=== PATIENT | male | born 1955 | race Hispanic/Latino ===

== ENCOUNTER 2017-02-17 06:03 | Day surgery (SDC) | payer BC ==
[2017-02-16 11:17] VITALS: BMI 31.8
[2017-02-17 06:45] VITALS: RESP 18
[2017-02-17] MEDS ORDERED: Phenylephrine 10 mg/ml Inj ONE (06:53)
[2017-02-17] MEDS ORDERED: Lidocaine 2% Inj (20ml) ONE (06:53)
[2017-02-17] MEDS ORDERED: DiphenhydrAMINE 50 mg/ml Inj ONE (06:54)
[2017-02-17] MEDS ORDERED: Midazolam 2 MG/2 ML VIAL ONE ×2 (06:55→07:49)
[2017-02-17] MEDS ORDERED: Iodixanol 320 MG/ML 100 ML BOTTLE IV ONE (06:56)
[2017-02-17] MEDS ORDERED: Iohexol 350mgl/ml 50 ML ONE (06:56)
[2017-02-17] MEDS ORDERED: Famotidine 20mg/50ml 20 MG/50 ML BAG IVPB ONE (06:56)
[2017-02-17] MEDS ORDERED: Nitroglycerin 50mg in D5W 0 MG/0 ML BOTTLE IV ONE (06:56)
[2017-02-17] MEDS ORDERED: Iodixanol 320 MG/ML 200 ML BOTTLE IV ONE (06:56)
[2017-02-17] MEDS ORDERED: HEPARIN SODIUM/NS 2,000 ML IV ONE (06:57)
[2017-02-17] MEDS ORDERED: Sodium Chloride 0.9% 1,000 ML IV SCH (08:30)
[2017-02-17 08:41] VITALS: TEMP 97.5
[2017-02-17 10:48] VITALS: O2SAT 93
[2017-02-17 12:16] VITALS: BP 149/70; PULSE 74
--- NOTE | 2017-02-17 15:26 | CARDCATH ---
PROCEDURE DATE: 02/17/2017 CARDIAC CATHETERIZATION REPORT PROCEDURES: 1. Selective left coronary angiography. 2. Left ventriculography. 3. Right femoral arteriography. 4. Mynx deployment. HISTORY: This is a 61-year-old male with multiple cardiac risk factors, recent abnormal stress test performed prior to plan the hip replacement surgery. Cardiac catheterization was recommended. INDICATIONS: As above. FINDINGS: HEMODYNAMICS: The aortic pressure was 130/76 with left ventricular pressure of 130/10. CORONARY ANATOMY: 1. The left mainstem was normal. 2. The left anterior descending artery had mild irregularities proximally. In the early mid portion there was moderate tapering of a 50% severity in the early distal segment. There was a 70% stenosis. The vessels was fairly large and wrapped around the apex. The diagonal branches had minimal disease. 3. The left circumflex artery gave rise to 2 moderate size obtuse marginal branches, which had minimal disease. 4. The right coronary artery was large dominant and normal. LEFT VENTRICULOGRAPHY: A hand injection was performed in the MILLER projection. This revealed normal wall motion with an ejection fraction of 65%. There was no aortic valve gradient noted on catheter pullback. Mitral regurgitation was not assessed. RIGHT FEMORAL ARTERIOGRAPHY: A right femoral arteriogram revealing no evidence of significant disease and appropriate level of arterial puncture. The puncture site was then closed with deployment of a Mynx device. CONCLUSIONS: 1. Moderate distal LAD disease. 2. Preserved LV systolic function. RECOMMENDATIONS: Given the above findings, medical therapy appears most appropriate at the present time with risk factor of upcoming orthopedic surgery, he appeared to be at average risk and does not require coronary intervention of prior to proceeding. Intensification of statin therapy and addition of a beta-serafin would be advisable. If he has progressive angina or worsening ischemia and followup stress testing consideration could be given to PCI of the distal LAD. Americo Chen MD cc: Paulina Restrepo MD
== END 2017-02-17 13:00 | disposition home or self-care (01) ==
LOC: CATH 06:03
PROVIDERS: ATTEND Internal Medicine Cardiovascular Disease
DX: I25.10 Atherosclerotic heart disease of native coronary artery without angina pectoris (principal); I10 Essential (primary) hypertension
CPT/HCPCS: 36415; 84132; 86850; 86900; 93458; 99152; 99153; C1760; C1769; C2629; J1200; J1644; J2250; J2930; J3010; J7030; J7040

== ENCOUNTER 2017-03-02 06:16 | Inpatient (IN) | payer BC ==
[2017-03-02 07:06] LABS: BASO # 0.02 [, K/mm3] (0.0-2.0); BASO % 0.3 % (0.0-3.0); EOS # 0.2 (0.0-0.7); EOS % 3.7 % (1.5-5.0); GRAN # 4.96 (1.4-6.5); GRAN % 76.8 % (50.0-68.0); HEMOGLOBIN 13.6 g/dL (14.0-18.0); LYMPH # 0.7 (1.2-3.4); MEAN CELL VOLUME 92.2 fl (80.0-105.0); MEAN CORPUSCULAR HEMOGLOBIN 31.3 pg (25.0-35.0); MEAN PLATELET VOLUME 9.5 fl (7.0-11.0); MONO # 0.5 (0.1-0.6); MONO % 8.2 % (1.0-6.0); RBC 4.34 [, 10^6/uL] (3.5-6.1); RED CELL DISTRIBUTION WIDTH 12.6 % (11.5-14.5); WHITE BLOOD COUNT 6.5 [, 10^3/ul] (4.5-11.0)
[2017-03-02 07:17] LABS: BLOOD UREA NITROGEN 16 mg/dL (7-21); CALCIUM 9.3 mg/dL (8.4-10.5); GFR AFRICAN-AMERICAN > 60; GFR NON-AFRICAN AMERICAN > 60
--- NOTE | 2017-03-02 07:21 | CP.PCM.HP ---
History of Present Illness - History of Present Illness History of Present Illness: 61M with left hip DJD failed conservative mgmt and elected for THR. Prior surgery includes right TKR, hiatal hernia PMD: Dr. Ahumada, Dr. Munoz cardiology clearance Allergy to iodine (eye drops, rash) Present on Admission - Present on Admission Any Indicators Present on Admission: No Review of Systems - Constitutional Additional comments: no recent cough or cold - Musculoskeletal Musculoskeletal: As Per HPI - Hematologic/Lymphatic Hematologic: absent: As Per HPI, Easy Bleeding, Easy Bruising, Lymphadenopathy, Other Past Patient History - Infectious Disease Hx of Infectious Diseases: None - Past Medical History & Family History Past Medical History?: Yes Past Family History: Reviewed and not pertinent - Past Social History Smoking Status: Former Smoker - CARDIAC Hx Pacemaker: No - PULMONARY Hx Respiratory Disorders: Yes Hx Chronic Obstructive Pulmonary Disease (COPD): Yes - NEUROLOGICAL Hx Paralysis: No - RENAL Other/Comment: PROSTATE CA NEW DX 04/2015 - ENDOCRINE/METABOLIC Hx Endocrine Disorders: No - HEMATOLOGICAL/ONCOLOGICAL Hx Blood Transfusions: No - MUSCULOSKELETAL/RHEUMATOLOGICAL Hx Musculoskeletal Disorders: Yes - GASTROINTESTINAL Hx Gastrointestinal Disorders: Yes Hx Gastroesophageal Reflux: Yes - GENITOURINARY/GYNECOLOGICAL Hx Prostate Cancer: Yes Hx Prostate Problems: Yes Hx Reproductive Disorders: No - PSYCHIATRIC Hx Emotional Abuse: No Hx Physical Abuse: No Hx Substance Use: No - SURGICAL HISTORY Hx Surgeries: Yes Hx Herniorrhaphy: Yes (2008 hiatal hernia) Hx Joint Replacement: Yes (right knee) - ANESTHESIA Hx Anesthesia Reactions: No Hx Malignant Hyperthermia: No Meds Allergies/Adverse Reactions: Allergies Allergy/AdvReac Type Severity Reaction Status Date / Time Iodine and Iodide Containing Allergy Severe ANGIOEDEMA/ Verified 02/03/17 07:42 Produc HIVES Physical Exam - Constitutional Appears: Well, No Acute Distress - Respiratory Exam Respiratory Exam: NORMAL BREATHING PATTERN - Expanded Lower Extremities Exam Left Hip exam: shortening (5mm short on left), normal inspection Knee exam: full ROM Ankle exam: FULL ROM - Neurological Exam Neurological exam: Alert, Oriented x3 - Psychiatric Exam Psychiatric exam: Normal Affect, Normal Mood - Skin Skin Exam: Dry, Intact, Normal Color, Warm Results - Vital Signs Recent Vital Signs: Last Vital Signs Temp 97.9 F 03/02/17 07:10 Pulse 70 03/02/17 07:10 Resp 18 03/02/17 07:10 BP 144/69 03/02/17 07:10 Pulse Ox 97 03/02/17 07:10 - Labs Result Diagrams: 03/02/17 06:43 03/02/17 06:43 Labs: Laboratory Results - last 24 hr 03/02/17 03/02/17 03/02/17 06:43 06:43 06:43 WBC 6.5 D RBC 4.34 Hgb 13.6 L Hct 40.0 L MCV 92.2 MCH 31.3 MCHC 34.0 RDW 12.6 Plt Count 188 MPV 9.5 Gran % 76.8 H Lymph % (Auto) 11.0 L Navarro % (Auto) 8.2 H Eos % (Auto) 3.7 Baso % (Auto) 0.3 Gran # 4.96 Lymph # 0.7 L Navarro # 0.5 Eos # 0.2 Baso # 0.02 Sodium 140 Potassium 4.0 Chloride 106 Carbon Dioxide 26 Anion Gap 13 BUN 16 Creatinine 1.0 Est GFR ( Amer) > 60 Est GFR (Non-Af Amer) > 60 Random Glucose 106 Calcium 9.3 BBK History Checked Patient has bt - Impressions Impression: atient Name / ID : TRINH GRUBBS / [id number] Exam Date : 02/03/2017 08:09:02 ( Approved ) Study Comment : Sex / Age : M / 61Y Creator : Charley Goldman Dictator : Charley Goldman Platform Stapler : Animal Behaviourist : Charley Goldman Approver2 : Report Date : 02/03/2017 13:16:02 My Comment : HISTORY: pre op hip rplct COMPARISON: 10/05/2015 TECHNIQUE: Chest PA and lateral FINDINGS: LUNGS: No active pulmonary disease. PLEURA: No significant pleural effusion identified. No pneumothorax apparent. CARDIOVASCULAR: Normal. OSSEOUS STRUCTURES: Thoracic spondylosis. Bilateral shoulder arthrosis VISUALIZED UPPER ABDOMEN: Normal. OTHER FINDINGS: None. IMPRESSION: No active disease. Assessment & Plan (1) Degenerative joint disease of left hip Assessment and Plan: NPO T&S for OR Status: Acute
[2017-03-02] MEDS ORDERED: Heparin 10,000 Units/ml ONE (07:26)
[2017-03-02] MEDS ORDERED: Bupivacaine 0.5% Inj(30mL) ONE (07:27)
[2017-03-02] MEDS ORDERED: EPINEPHrine 1:1000 Nasal Sol(30mL) ONE (07:28)
[2017-03-02] MEDS ORDERED: Midazolam 2 MG/2 ML VIAL ONE (07:34)
[2017-03-02] MEDS ORDERED: Succinylcholine 200 mg/10 ml Inj IV ONE (07:36)
[2017-03-02] MEDS ORDERED: Lidocaine 1% Inj (20ml) ONE (07:36)
[2017-03-02] MEDS ORDERED: Rocuronium 10 mg/ml (5 ml) ONE ×2 (07:36→08:49)
[2017-03-02] MEDS ORDERED: Propofol 10 mg/ml Inj (20 ML) ONE (07:36)
[2017-03-02] MEDS ORDERED: ePHEDrine 50 mg/ml Inj ONE ×2 (07:42→07:43)
[2017-03-02] MEDS ORDERED: Phenylephrine 10 mg/ml Inj ONE (07:42)
[2017-03-02] MEDS ORDERED: Ketamine 10 mg/ml Inj (20 ml) ONE (07:59)
[2017-03-02] MEDS ORDERED: Desflurane Inhalation Anesthetic Liq (240 ml) ONE (09:39)
[2017-03-02] MEDS ORDERED: Neostigmine Methylsulfate 3mg/3ml Syringe IV ONE (11:03)
--- NOTE | 2017-03-02 11:21 | PCM.SURG1 ---
Surgeon's Initial Post Op Note - Surgeon's Notes Surgeon: Tosha Mclain MD Lye Machine Operator: Flaquito Cristobal PA-C Type of Anesthesia: General LMA Anesthesia Administered By: Dr. Rivera Pre-Operative Diagnosis: Left hip DJD Operative Findings: same Post-Operative Diagnosis: same Operation Performed: Left total hip replacement Specimen/Specimens Removed: femoral head Estimated Blood Loss: EBL {In ML}: 150 Drains Used: No Drains Post-Op Condition: Fair Date of Surgery/Procedure: 03/02/17 Time of Surgery/Procedure: 11:21
[2017-03-02] MEDS ORDERED: HYDROmorphone 0.5 mg/0.5 ml ISec IVP PRN (11:25)
[2017-03-02] MEDS ORDERED: Sodium Chloride 0.9% 1,000 ML IV SCH (11:30)
[2017-03-02] MEDS: HYDROmorphone 0.5 mg/0.5 ml ISec ONE ×2 (11:45→12:10)
--- NOTE | 2017-03-02 12:03 | RAD ---
PROCEDURE: Left Hip X-ray Radiographs. HISTORY: pt in PACU s/p THR COMPARISON: None. FINDINGS: BONES: No acute fracture. JOINTS: Status post left total hip replacement. No dislocation. SOFT TISSUES: Normal. OTHER FINDINGS: None. IMPRESSION: Left THR.
[2017-03-02] MEDS ORDERED: HYDROmorphone 0.5 mg/0.5 ml ISec ONE (12:08)
[2017-03-02] MEDS ORDERED: ceFAZolin 2 GM in Sodium Chloride 0.9% 100 ML IVPB SCH (16:00)
[2017-03-02] MEDS: Multivitamin With Minerals Tab PO SCH (17:00)
[2017-03-02] MEDS: Pantoprazole 40 mg EC Tab PO SCH (17:01)
[2017-03-02] MEDS: Sodium Chloride 0.9% 1,000 ML IV SCH (17:09)
[2017-03-02 19:43] VITALS: BMI 32.2
[2017-03-02] MEDS: HYDROmorphone 0.5 mg/0.5 ml ISec IVP PRN ×2 (19:48→23:55)
[2017-03-02] MEDS: ceFAZolin 2 GM in Sodium Chloride 0.9% 100 ML IVPB SCH (19:48)
[2017-03-02] MEDS: Budesonide 0.5 mg/2 ml Inhal Susp UD IH SCH (21:48)
[2017-03-02] MEDS: Arformoterol 15 mcg/2 ml Inh Sol IH SCH (21:48)
--- NOTE | 2017-03-02 22:22 | OP ---
PROCEDURE DATE: 03/02/2017 PREOPERATIVE DIAGNOSIS: Left hip arthritis. POSTOPERATIVE DIAGNOSIS: Left hip arthritis. PROCEDURE: Left total hip arthroplasty. SURGEON: El Howell MD VEGETABLE INSPECTOR: Dr. Howell was assisted by Paula Vanegas, the physician registered dental assistant. Ms. Vanegas was scrubbed and present throughout the entire case and assisted in the patient's positioning, retraction, reduction of the prosthesis, as well as wound closure. ANESTHESIA: General. COMPLICATIONS: None. ESTIMATED BLOOD LOSS: 150 mL. IMPLANTS: Biomet dual mobility, total hip. INDICATION FOR PROCEDURE: This is a 61-year-old gentleman with longstanding left hip pain. Clinical examination was consistent with groin pain with range of motion of the left hip, approximately 1.5 to 2 cm limb length discrepancy with the left lower extremity shorter than the right. Radiographic examination consistent with advanced degenerative joint disease. After feared of failed nonsurgical management, recommendation was for left total hip arthroplasty. The risks, benefits, and alternatives of the procedure were discussed with the patient including instability and persistent limb length discrepancy, and informed consent was obtained. OPERATIVE PROCEDURE: After the surgical site was signed and verified in the preoperative holding area, the patient was taken to the operating room and placed supine on the operating room table. After administration of general anesthesia, the patient received 2 gm of Ancef IV. The patient was positioned in the lateral decubitus position with the left hip up towards the ceiling. An axillary roll was placed in the right axilla. Care was taken to make sure all bony prominences and nerves were well padded and protected. Venodyne boot was placed on the nonoperative extremity and the left lower extremity was prepped and draped in the usual sterile fashion. The bony landmarks were identified about the left hip, and approximately 10 to 12 cm curvilinear incision was made. Soft tissue was dissected sharply down to the fascia, and the fascia was incised. Charnley retractor was placed and short external rotators were identified, tagged and resected off from the proximal femur. T-type capsulotomy was performed and the hip was dislocated. Based on our preoperative template, femoral neck resection was performed. Next, the anterior capsulotomy was performed and the acetabulum was exposed. The labrum was sharply excised around the periphery of the acetabulum and at this point, the acetabulum was reamed sequentially to allow for a 56 mm press-fit cup. The cup was trailed and satisfied with the position, the trial was removed, and the hip joint was pulse lavaged with antibiotic saline solution. Bony surfaces were dried and the actual cup was impacted into place making sure to maintain a proper acetabular height and version. At this point, attention was directed to the femur. The canal finding reamer was inserted and then the femur canal was reamed and broached sequentially to allow for an 11 mm press-fit stem. With the trial stem in place, the trial neck and head was placed, the hip was reduced. The hip was taken through a range of motion and was noted to be stable with approximately equal limb lengths. The hip was then dislocated and the trial components were removed. The hip was pulse lavaged and the actual stem was then impacted into place. Prior to doing this, the acetabular liner was inserted and impacted into place. At this point, the hip was reduced and again was noted to be stable with approximately equal limb lengths. Capsule was closed using #1 Vicryl suture. The short external rotators were also repaired using #1 Vicryl suture. The deep fascia was closed using #1 Vicryl suture, the subcutaneous tissue was closed using 0 Vicryl and 2-0 Vicryl suture and the skin was closed using rony. A sterile dressing was applied and an abduction pillow was placed. The patient was transferred supine and awakened and taken to recovery room in stable condition. El Howell MD
[2017-03-03] MEDS: ceFAZolin 2 GM in Sodium Chloride 0.9% 100 ML IVPB SCH (02:30)
[2017-03-03] MEDS: HYDROmorphone 0.5 mg/0.5 ml ISec IVP PRN ×5 (04:56→22:44)
[2017-03-03] MEDS: Budesonide 0.5 mg/2 ml Inhal Susp UD IH SCH ×2 (07:23→21:31)
[2017-03-03] MEDS: Arformoterol 15 mcg/2 ml Inh Sol IH SCH ×2 (07:23→21:31)
[2017-03-03 07:31] LABS: BLOOD UREA NITROGEN 16 mg/dL (7-21); CALCIUM 8.5 mg/dL (8.4-10.5); GFR AFRICAN-AMERICAN > 60; GFR NON-AFRICAN AMERICAN > 60
[2017-03-03 09:04] VITALS: RESP 20
[2017-03-03] MEDS: Cholecalciferol 1,000 INTLU TAB PO SCH (09:23)
[2017-03-03] MEDS: Potassium Chloride 10 mEq ER Tab PO SCH ×2 (09:23→18:18)
[2017-03-03] MEDS: Pantoprazole 40 mg EC Tab PO SCH (09:24)
[2017-03-03] MEDS: Multivitamin With Minerals Tab PO SCH (09:24)
[2017-03-03] MEDS: Metoprolol Succinate 25 mg XL Tab PO SCH (09:24)
[2017-03-03] MEDS: Sodium Chloride 0.9% 1,000 ML IV SCH (09:27)
[2017-03-03] MEDS ORDERED: Enoxaparin 40 mg Syringe SC SCH (10:00)
[2017-03-03] MEDS ORDERED: Fluticasone-Salmeterol 250-50mcg Diskus IH SCH (10:00)
[2017-03-03] MEDS ORDERED: Non Formulary Medication (Rosuvastatin Calcium [Crestor] 10 MG) PO SCH (10:00)
--- NOTE | 2017-03-03 11:12 | CP.PCM.PN ---
Subjective - Date & Time of Evaluation Date of Evaluation: 03/03/17 Time of Evaluation: 11:09 - Subjective Subjective: Pt awake,alert. Adequate pain control. Pain sitting in chair. Afebrile L hip: dressing clean and intact NVI distally Hg pending POD#1 Stable PT, DVT prophylaxis D/C plan discussed with patient. Plan for d/c home with home PT possibly tomorrow. Objective - Vital Signs/Intake and Output Vital Signs (last 24 hours): Temp Pulse Resp BP Pulse Ox 98.2 F 84 20 116/62 94 L 03/03/17 09:03 03/03/17 09:24 03/03/17 09:03 03/03/17 09:25 03/03/17 09:03 Intake and Output: 03/03/17 03/03/17 06:59 18:59 Intake Total 480 Balance 480 - Medications Medications: Current Medications Acetaminophen (Tylenol 325mg Tab) 975 mg PO Q8H [facility] Last Admin: 03/03/17 04:57 Dose: 975 mg Amlodipine Besylate (Norvasc) 10 mg PO DAILY [facility] Last Admin: 03/03/17 09:25 Dose: 10 mg Apixaban (Eliquis) 2.5 mg PO Q12H [facility] PRN Reason: Protocol Last Admin: 03/03/17 09:24 Dose: 2.5 mg Arformoterol Tartrate (Brovana) 15 mcg IH [id number] [facility] Last Admin: 03/03/17 07:23 Dose: 15 mcg Aspirin (Ecotrin) 81 mg PO DAILY [facility] Last Admin: 03/03/17 09:25 Dose: 81 mg Atorvastatin Calcium (Lipitor) 40 mg PO DIN [facility] Last Admin: 03/02/17 17:00 Dose: 40 mg Budesonide (Pulmicort Respules) 0.5 mg IH [id number] [facility] Last Admin: 03/03/17 07:23 Dose: 0.5 mg Cholecalciferol (Vitamin D) 2,000 intlu PO DAILY [facility] Last Admin: 03/03/17 09:23 Dose: 2,000 intlu Docusate Sodium (Colace) 100 mg PO BID [facility] Last Admin: 03/03/17 09:22 Dose: 100 mg Gabapentin (Neurontin) 300 mg PO TID [facility] PRN Reason: Protocol Last Admin: 01/17/18 09:22 Dose: 300 mg Hydromorphone HCl (Dilaudid) 0.5 mg IVP Q4H PRN PRN Reason: Pain, severe (8-10) Last Admin: 03/03/17 09:25 Dose: 0.5 mg Sodium Chloride (Sodium Chloride 0.9%) 1,000 mls @ 80 mls/hr IV .[id number] [facility] Last Admin: 03/03/17 09:27 Dose: 80 mls/hr Metoclopramide HCl (Reglan) 10 mg IV ONCE PRN PRN Reason: Nausea/Vomiting Metoprolol Succinate (Toprol Xl) 25 mg PO DAILY [facility] Last Admin: 03/03/17 09:24 Dose: 25 mg Multivitamins/Minerals (Therapeutic-M Tab) 1 tab PO DAILY [facility] Last Admin: 03/03/17 09:24 Dose: 1 tab Ondansetron HCl (Zofran Inj) 4 mg IVP Q6H PRN PRN Reason: Nausea/Vomiting Last Admin: 03/03/17 04:57 Dose: 4 mg Pantoprazole Sodium (Protonix Ec Tab) 40 mg PO DAILY [facility] Last Admin: 03/03/17 09:24 Dose: 40 mg Potassium Chloride (Klor-Con 10) 10 meq PO BID [facility] Last Admin: 03/03/17 09:23 Dose: 10 meq Tamsulosin HCl (Flomax) 0.4 mg PO DAILY [facility] Last Admin: 03/03/17 09:23 Dose: 0.4 mg - Labs Labs: 03/02/17 06:43 03/03/17 06:30
[2017-03-03 11:25] LABS: BASO # 0.01 [, K/mm3] (0.0-2.0); BASO % 0.1 % (0.0-3.0); EOS # 0.1 (0.0-0.7); EOS % 0.8 % (1.5-5.0); GRAN # 7.19 (1.4-6.5); GRAN % 82.1 % (50.0-68.0); LYMPH # 0.8 (1.2-3.4); LYMPH % 9.3 % (22.0-35.0); MEAN CELL VOLUME 95.2 fl (80.0-105.0); MEAN CORPUSCULAR HEMOGLOBIN 31.4 pg (25.0-35.0); MEAN CORPUSCULAR HGB CONC 32.9 g/dl (31.0-37.0); MEAN PLATELET VOLUME 9.7 fl (7.0-11.0); MONO # 0.7 (0.1-0.6); MONO % 7.7 % (1.0-6.0); RBC 3.57 [, 10^6/uL] (3.5-6.1); RED CELL DISTRIBUTION WIDTH 12.8 % (11.5-14.5); WHITE BLOOD COUNT 8.8 [, 10^3/ul] (4.5-11.0)
[2017-03-03 11:36] LABS: HEMOGLOBIN 11.2 g/dL (14.0-18.0)
[2017-03-04] MEDS: HYDROmorphone 0.5 mg/0.5 ml ISec IVP PRN ×6 (02:32→21:55)
--- NOTE | 2017-03-04 03:56 | CON ---
DATE: 03/03/2017 REFERRING PHYSICIAN: El Howell MD. PRIMARY CARE DOCTOR: Paulina Restrepo MD REASON FOR CONSULTATION: Medical management of left hip surgery, postop care with pain management. CHIEF COMPLAINT AND HISTORY OF PRESENT ILLNESS: This is a 61-year-old male who is coming into the hospital for elective left hip surgery. The patient has a history of degenerative joint disease in the left hip. He had medical management, but he is having difficulty in ambulating. He had surgery by Dr. Delgado. I have been asked to evaluate the patient for his postop care from the hip surgery as well as pain management. The patient states he had a difficult night overnight because of the pain. He had difficulty sleeping. He states that he is feeling better with the pain medication he is getting. He does needs to be changed, but it is early and so we will see how he feels rest of the morning. The patient is comfortable. He has no complaints of any nausea. No chest pain. No shortness of breath. No headaches. No weakness in the arms or the legs. No dizziness. No blurred vision. REVIEW OF SYSTEMS: All other review of symptoms are within jayy limits except as mentioned. ALLERGIES: HE IS ALLERGIC TO IODINE. HOME MEDICATIONS: He is on aspirin, tamsulosin, Nexium, amlodipine, metoprolol, and vitamin D. SOCIAL HISTORY: He denies alcohol or drugs. FAMILY HISTORY: Noncontributory. PHYSICAL EXAMINATION: VITAL SIGNS: Temperature is 98.2, pulse is 84, blood pressure is 116/62, respirations are 20, and O2 saturation is 94%. Height is 5 feet 7 inches. Weight is 206 pounds. BMI is 32. GENERAL: The patient lying in bed, uncomfortable, and in no acute distress. HEENT: Atraumatic and normocephalic. Anicteric sclerae. Moist mucosa. Worth conjunctivae. No oral lesions. NECK: No JVD, anterior and posterior adenopathy, thyromegaly, or bruits. CARDIOVASCULAR: S1 and S2 regular. No murmur, rubs, or gallop. LUNGS: Clear to auscultation bilaterally. No wheezes, rales, or rhonchi. ABDOMEN: Bowel sounds are positive. Soft, nontender and nondistended. No hepatosplenomegaly. No rebound and no guarding. EXTREMITIES: No cyanosis, clubbing, or edema. In the left leg, decreased range of motion because of pain. NEUROLOGIC: No facial asymmetry. Tongue is midline. No uvula deviation. Power is 5/5 upper extremity and lower extremity. Sensation intact in upper extremity and lower extremity. PSYCHIATRIC: He is awake, alert and oriented x3. No anxiety or depression. He has normal affect. GENITOURINARY: No CVA tenderness. VASCULAR: 2+ pulses in the carotid pulses and pedal pulses. SKIN: No erythema or nodules. SPINE: Shows normal curvature. LABORATORY DATA: White count is 6.5 and hemoglobin is 13.6. Repeat hemoglobin is 11.2. He has a vitamin D of 23. Sodium is 140, potassium is 4.0, and creatinine is 1.0. ASSESSMENT: 1. Left hip degenerative joint disease, status post total hip arthroplasty. 2. Dyslipidemia. 3. Peripheral neuropathy. 4. Hypertension. 5. Benign prostatic hyperplasia. PLAN: The patient is currently comfortable. He had about 150 mL of blood loss during the procedure. The patient's blood pressure is controlled. He is going to continue with Norvasc. He is on Lipitor for dyslipidemia. He is going to continue with his potassium. He is receiving for vitamin D for vitamin D deficiency. The patient is on IV fluids. I will discontinue his IV fluids at this point. He is on Flomax for his BPH. The patient is on Dilaudid for pain and he is going to be on Colace for constipation. He is going to be seen by Physical Therapy. He is on a heart-healthy diet. He does have a Neil, this will be taken out. He currently feels well. He may be able to go home by tomorrow. James Emerson MD
[2017-03-04 07:13] LABS: HEMOGLOBIN 10.3 g/dL (14.0-18.0); MEAN CELL VOLUME 93.3 fl (80.0-105.0); MEAN CORPUSCULAR HEMOGLOBIN 31.3 pg (25.0-35.0); MEAN CORPUSCULAR HGB CONC 33.6 g/dl (31.0-37.0); MEAN PLATELET VOLUME 9.2 fl (7.0-11.0); RBC 3.29 [, 10^6/uL] (3.5-6.1); RED CELL DISTRIBUTION WIDTH 12.3 % (11.5-14.5); WHITE BLOOD COUNT 7.5 [, 10^3/ul] (4.5-11.0)
[2017-03-04] MEDS: Arformoterol 15 mcg/2 ml Inh Sol IH SCH ×2 (07:22→20:21)
[2017-03-04] MEDS: Budesonide 0.5 mg/2 ml Inhal Susp UD IH SCH ×2 (07:22→20:21)
[2017-03-04 08:23] LABS: BLOOD UREA NITROGEN 11 mg/dL (7-21); CALCIUM 8.4 mg/dL (8.4-10.5); GFR AFRICAN-AMERICAN > 60; GFR NON-AFRICAN AMERICAN > 60
--- NOTE | 2017-03-04 08:45 | PN ---
DATE: 03/04/2017 SUBJECTIVE: The patient says his pain is now well controlled. He says it lasts about 1 hours and then he starts having significant pain that is about 6-7/10. He still is not able to sleep well. PHYSICAL EXAMINATION: VITAL SIGNS: Temperature is 97.9, pulse of 101, blood pressure is 133/81, respirations 20. GENERAL: The patient is lying in bed, flat, comfortable. HEENT: No oral lesion. Anicteric sclerae. Moist mucosa. NECK: No JVD, adenopathy, or thyromegaly. CARDIOVASCULAR: S1 and S2, regular. No murmurs, rubs, or gallops. LUNGS: Clear to auscultation bilaterally. No wheeze, rales, or rhonchi. ABDOMEN: Bowel sounds are positive, soft, nontender and nondistended. EXTREMITIES: No cyanosis, clubbing or edema. LABS: White count of 7.5, hemoglobin 10.3. ASSESSMENT: 1. Left hip status post left total hip arthroplasty, postoperative day #2. 2. Dyslipidemia. 3. Peripheral neuropathy. 4. Hypertension. 5. Benign prostatic hypertrophy. PLAN: The patient is currently on Colace for constipation. He is going to be on Dilaudid for pain. I have increased the patient's Dilaudid to 1 mg. The patient is on aspirin 81 daily. He is on apixaban for DVT prophylaxis. He is on Flomax for his BPH. He is on potassium. I will discontinue the patient's potassium. He is on Neurontin for neuropathy. He is on Norvasc for hypertension. The patient is on metoprolol daily. He is on vitamin D for low vitamin D. James Emerson MD
--- NOTE | 2017-03-04 09:09 | CP.PCM.PN ---
Subjective - Date & Time of Evaluation Date of Evaluation: 03/04/17 Time of Evaluation: 09:09 - Subjective Subjective: Pt awake, alert. Complaining of L hip pain. VSS L hip: dressing changed incision clean and dry no cellulits or drainage thigh soft NVI distally Hg 10.3 POD #2 continue PT Plan for possibel acute rehab depending on progress with physical therapy today Objective - Vital Signs/Intake and Output Vital Signs (last 24 hours): Temp Pulse Resp BP Pulse Ox 97.9 F 101 H 20 133/81 99 03/04/17 08:03 03/04/17 08:03 03/04/17 08:03 03/04/17 08:03 03/04/17 08:03 Intake and Output: 03/04/17 03/04/17 06:59 18:59 Intake Total 240 Output Total 400 Balance -160 - Medications Medications: Current Medications Acetaminophen (Tylenol 325mg Tab) 975 mg PO Q8H [facility] Last Admin: 03/04/17 08:26 Dose: Not Given Amlodipine Besylate (Norvasc) 10 mg PO DAILY [facility] Last Admin: 03/03/17 09:25 Dose: 10 mg Apixaban (Eliquis) 2.5 mg PO Q12H [facility] PRN Reason: Protocol Last Admin: 03/03/17 21:23 Dose: 2.5 mg Arformoterol Tartrate (Brovana) 15 mcg IH [id number] [facility] Last Admin: 03/04/17 07:22 Dose: 15 mcg Aspirin (Ecotrin) 81 mg PO DAILY [facility] Last Admin: 03/03/17 09:25 Dose: 81 mg Atorvastatin Calcium (Lipitor) 40 mg PO DIN [facility] Last Admin: 03/03/17 18:19 Dose: 40 mg Budesonide (Pulmicort Respules) 0.5 mg IH [id number] [facility] Last Admin: 03/04/17 07:22 Dose: 0.5 mg Cholecalciferol (Vitamin D) 2,000 intlu PO DAILY [facility] Last Admin: 03/03/17 09:23 Dose: 2,000 intlu Docusate Sodium (Colace) 100 mg PO BID [facility] Last Admin: 03/03/17 18:18 Dose: 100 mg Gabapentin (Neurontin) 300 mg PO TID [facility] PRN Reason: Protocol Last Admin: 03/03/17 18:19 Dose: 300 mg Hydromorphone HCl (Dilaudid) 1 mg IVP Q4H PRN PRN Reason: Pain, severe (8-10) Metoclopramide HCl (Reglan) 10 mg IV ONCE PRN PRN Reason: Nausea/Vomiting Metoprolol Succinate (Toprol Xl) 25 mg PO DAILY [facility] Last Admin: 03/03/17 09:24 Dose: 25 mg Multivitamins/Minerals (Therapeutic-M Tab) 1 tab PO DAILY [facility] Last Admin: 03/03/17 09:24 Dose: 1 tab Ondansetron HCl (Zofran Inj) 4 mg IVP Q6H PRN PRN Reason: Nausea/Vomiting Last Admin: 03/03/17 04:57 Dose: 4 mg Pantoprazole Sodium (Protonix Ec Tab) 40 mg PO DAILY [facility] Last Admin: 03/03/17 09:24 Dose: 40 mg Polyethylene Glycol (Miralax) 17 gm PO BID [facility] Tamsulosin HCl (Flomax) 0.4 mg PO DAILY [facility] Last Admin: 03/03/17 09:23 Dose: 0.4 mg - Labs Labs: 03/04/17 06:30 03/04/17 06:15
[2017-03-04] MEDS: POLYETHYLENE GLYCOL 3350 17 GM/Dose PACKET PO SCH ×2 (10:04→17:28)
[2017-03-04] MEDS: Metoprolol Succinate 25 mg XL Tab PO SCH (10:05)
[2017-03-04] MEDS: Multivitamin With Minerals Tab PO SCH (10:05)
[2017-03-04] MEDS: Pantoprazole 40 mg EC Tab PO SCH (10:05)
[2017-03-04] MEDS: Cholecalciferol 1,000 INTLU TAB PO SCH (10:05)
[2017-03-04 10:31] LABS: BASO # 0.01 [, K/mm3] (0.0-2.0); BASO % 0.1 % (0.0-3.0); EOS # 0.2 (0.0-0.7); EOS % 1.8 % (1.5-5.0); GRAN # 6.74 (1.4-6.5); GRAN % 80.4 % (50.0-68.0); HEMOGLOBIN 10.9 g/dL (14.0-18.0); LYMPH # 0.7 (1.2-3.4); LYMPH % 8.4 % (22.0-35.0); MEAN CORPUSCULAR HEMOGLOBIN 31.7 pg (25.0-35.0); MEAN CORPUSCULAR HGB CONC 34.1 g/dl (31.0-37.0); MONO # 0.8 (0.1-0.6); MONO % 9.3 % (1.0-6.0); RBC 3.44 [, 10^6/uL] (3.5-6.1); RED CELL DISTRIBUTION WIDTH 12.2 % (11.5-14.5); WHITE BLOOD COUNT 8.4 [, 10^3/ul] (4.5-11.0)
[2017-03-05] MEDS: HYDROmorphone 0.5 mg/0.5 ml ISec IVP PRN ×6 (02:03→22:18)
[2017-03-05 07:04] LABS: HEMOGLOBIN 10.4 g/dL (14.0-18.0); MEAN CELL VOLUME 92.8 fl (80.0-105.0); MEAN CORPUSCULAR HEMOGLOBIN 31.1 pg (25.0-35.0); MEAN CORPUSCULAR HGB CONC 33.5 g/dl (31.0-37.0); MEAN PLATELET VOLUME 9.2 fl (7.0-11.0); RBC 3.34 [, 10^6/uL] (3.5-6.1); RED CELL DISTRIBUTION WIDTH 12.3 % (11.5-14.5); WHITE BLOOD COUNT 7.2 [, 10^3/ul] (4.5-11.0)
[2017-03-05 07:36] LABS: BLOOD UREA NITROGEN 14 mg/dL (7-21); CALCIUM 8.6 mg/dL (8.4-10.5); GFR AFRICAN-AMERICAN > 60; GFR NON-AFRICAN AMERICAN > 60
[2017-03-05] MEDS: Arformoterol 15 mcg/2 ml Inh Sol IH SCH ×2 (07:37→20:40)
[2017-03-05] MEDS: Budesonide 0.5 mg/2 ml Inhal Susp UD IH SCH ×2 (07:37→20:40)
[2017-03-05] MEDS: Multivitamin With Minerals Tab PO SCH (09:49)
[2017-03-05] MEDS: Metoprolol Succinate 25 mg XL Tab PO SCH (09:50)
[2017-03-05] MEDS: POLYETHYLENE GLYCOL 3350 17 GM/Dose PACKET PO SCH ×2 (09:50→17:40)
[2017-03-05] MEDS: Pantoprazole 40 mg EC Tab PO SCH (09:50)
[2017-03-05] MEDS: Cholecalciferol 1,000 INTLU TAB PO SCH (09:50)
--- NOTE | 2017-03-05 10:41 | CP.PCM.DIS ---
Provider - Provider Date of Admission: 03/02/17 06:16 Attending physician: El Howell MD Primary care physician: Paulina Ahumada MD Diagnosis - Discharge Diagnosis (1) Degenerative joint disease of left hip Status: Acute Hospital Course - Lab Results Lab Results: Most Recent Lab Values WBC 7.2 10^3/ul (4.5-11.0) 03/05/17 06:30 RBC 3.34 10^6/uL (3.5-6.1) L 03/05/17 06:30 Hgb 10.4 g/dL (14.0-18.0) L 03/05/17 06:30 Hct 31.0 % (42.0-52.0) L 03/05/17 06:30 MCV 92.8 fl (80.0-105.0) 03/05/17 06:30 MCH 31.1 pg (25.0-35.0) 03/05/17 06:30 MCHC 33.5 g/dl (31.0-37.0) 03/05/17 06:30 RDW 12.3 % (11.5-14.5) 03/05/17 06:30 Plt Count 150 10^3/uL (120.0-450.0) 03/05/17 06:30 MPV 9.2 fl (7.0-11.0) 03/05/17 06:30 Gran % 80.4 % (50.0-68.0) H 03/04/17 10:25 Lymph % (Auto) 8.4 % (22.0-35.0) L 03/04/17 10:25 [place] % (Auto) 9.3 % (1.0-6.0) H 03/04/17 10:25 Eos % (Auto) 1.8 % (1.5-5.0) 03/04/17 10:25 Baso % (Auto) 0.1 % (0.0-3.0) 03/04/17 10:25 Gran # 6.74 (1.4-6.5) H 03/04/17 10:25 Lymph # 0.7 (1.2-3.4) L 03/04/17 10:25 [place] # 0.8 (0.1-0.6) H 03/04/17 10:25 Eos # 0.2 (0.0-0.7) 03/04/17 10:25 Baso # 0.01 K/mm3 (0.0-2.0) 03/04/17 10:25 Sodium 133 mmol/L (132-148) 03/05/17 06:30 Potassium 3.8 mmol/L (3.6-5.0) 03/05/17 06:30 Chloride 97 mmol/L (98-107) L 03/05/17 06:30 Carbon Dioxide 28 mmol/L (21-33) 03/05/17 06:30 Anion Gap 11 (10-20) 03/05/17 06:30 BUN 14 mg/dL (7-21) 03/05/17 06:30 Creatinine 0.8 mg/dl (0.8-1.5) 03/05/17 06:30 Est GFR ( Amer) > 60 03/05/17 06:30 Est GFR (Non-Af Amer) > 60 03/05/17 06:30 Random Glucose 110 mg/dL (70-110) 03/05/17 06:30 Calcium 8.6 mg/dL (8.4-10.5) 03/05/17 06:30 25-OH Vitamin D Total 23.2 NG/ML (30.0-100.0) L 03/03/17 06:30 Blood Type A POSITIVE 03/02/17 06:43 Antibody Screen Negative 03/02/17 06:43 BBK History Checked Patient has bt 03/02/17 06:43 Discharge Plan - Follow Up Plan Condition: GOOD Disposition: REHAB FACILITY/REHAB UNIT Referrals: Paulina Ahumada MD [Primary Care Provider] - El Howell MD [Staff Provider] - 03/15/17 (Dressing change left hip daily until dry hip abduction pillow in bed posterior hip precautions continue medications per APR f/u 03/15/17 call for appointment)
--- NOTE | 2017-03-05 10:44 | CP.PCM.PN ---
Subjective - Date & Time of Evaluation Date of Evaluation: 03/05/17 Time of Evaluation: 10:43 - Subjective Subjective: Patient still complaining of significant hip pain. He says he wants to go to rehab because he is not able to do anything independently. Denies CP/SOB/ dizziness. Objective - Vital Signs/Intake and Output Vital Signs (last 24 hours): Temp Pulse Resp BP Pulse Ox 99.6 F 90 20 128/83 93 L 03/05/17 07:47 03/05/17 09:50 03/05/17 07:47 03/05/17 09:49 03/05/17 07:47 Intake and Output: 03/05/17 03/05/17 06:59 18:59 Intake Total 900 Output Total 1050 Balance -150 - Medications Medications: Current Medications Acetaminophen (Tylenol 325mg Tab) 975 mg PO Q8H [facility] Last Admin: 03/05/17 08:00 Dose: Not Given Amlodipine Besylate (Norvasc) 10 mg PO DAILY [facility] Last Admin: 03/05/17 09:49 Dose: 10 mg Apixaban (Eliquis) 2.5 mg PO Q12H [facility] PRN Reason: Protocol Last Admin: 03/05/17 08:26 Dose: 2.5 mg Arformoterol Tartrate (Brovana) 15 mcg IH [id number] [facility] Last Admin: 03/05/17 07:37 Dose: 15 mcg Aspirin (Ecotrin) 81 mg PO DAILY [facility] Last Admin: 03/05/17 09:49 Dose: 81 mg Atorvastatin Calcium (Lipitor) 40 mg PO DIN [facility] Last Admin: 03/04/17 17:28 Dose: 40 mg Budesonide (Pulmicort Respules) 0.5 mg IH [id number] [facility] Last Admin: 03/05/17 07:37 Dose: 0.5 mg Cholecalciferol (Vitamin D) 2,000 intlu PO DAILY [facility] Last Admin: 03/05/17 09:50 Dose: 2,000 intlu Docusate Sodium (Colace) 100 mg PO BID [facility] Last Admin: 03/05/17 09:49 Dose: 100 mg Gabapentin (Neurontin) 300 mg PO TID [facility] PRN Reason: Protocol Last Admin: 03/05/17 09:49 Dose: 300 mg Hydromorphone HCl (Dilaudid) 1 mg IVP Q4H PRN PRN Reason: Pain, severe (8-10) Last Admin: 03/05/17 09:54 Dose: 1 mg Metoprolol Succinate (Toprol Xl) 25 mg PO DAILY [facility] Last Admin: 03/05/17 09:50 Dose: 25 mg Multivitamins/Minerals (Therapeutic-M Tab) 1 tab PO DAILY [facility] Last Admin: 03/05/17 09:49 Dose: 1 tab Ondansetron HCl (Zofran Inj) 4 mg IVP Q6H PRN PRN Reason: Nausea/Vomiting Last Admin: 03/03/17 04:57 Dose: 4 mg Pantoprazole Sodium (Protonix Ec Tab) 40 mg PO DAILY [facility] Last Admin: 03/05/17 09:50 Dose: 40 mg Polyethylene Glycol (Miralax) 17 gm PO BID [facility] Last Admin: 03/05/17 09:50 Dose: 17 gm Tamsulosin HCl (Flomax) 0.4 mg PO DAILY [facility] Last Admin: 03/05/17 09:49 Dose: 0.4 mg - Labs Labs: 03/05/17 06:30 03/05/17 06:30 - Extremities Exam Additional comments: Left hip: dressing change. Incision intact, scant sang drainage, noted ecchymosis to thigh, stable swelling., +ROM ankle/toes, sensation itact +DP/PT pulses calves soft NT neg homans Assessment and Plan (1) Degenerative joint disease of left hip Assessment & Plan: POD#3 s/p left THR -d/c to [facility] today -cont medications including eliquis -hip precautions, abduction pillow in bed -daily dressing change -f/u call for appt -d/w Dr. Howell, agrees with above Status: Acute (2) Acute blood loss anemia Assessment & Plan: hemodynamically stable, no intervention needed Status: Acute (3) HTN (hypertension) Assessment & Plan: cont home meds Status: Chronic (4) GERD (gastroesophageal reflux disease) Assessment & Plan: cont home meds Status: Chronic (5) Hypercholesteremia Assessment & Plan: cont home meds Status: Chronic (6) Asthma Assessment & Plan: cont home meds Status: Chronic
--- NOTE | 2017-03-05 17:56 | US ---
PROCEDURE: Left lower extremity venous US HISTORY: Leg pain and swelling. Evaluate for DVT. Recent left hip surgery. PHYSICIAN(S): Jeyson Daniel MD. TECHNIQUE: Duplex sonography and color-flow Doppler with graded compression were used to evaluate the deep venous system of the left lower extremity. FINDINGS: The visualized deep venous system of the left lower extremity is sonographically normal and compressible. Normal wave forms and augmentation are seen. There is no sonographic evidence for deep venous thrombosis in the visualized segments of the left lower extremity. IMPRESSION: 1. No sonographic evidence for deep venous thrombosis in the visualized segments of the left lower extremity.
[2017-03-05 21:11] VITALS: BP 119/64; PULSE 87; TEMP 99.4; O2SAT 92
== END 2017-03-06 00:05 | DRG 470 ==
LOC: SDAINP 06:16 → EDSTATUS 07:30 → 5RNO 13:10
PROVIDERS: ADMIT Orthopaedic Surgery; ATTEND Orthopaedic Surgery
PROC: 0SRB0JA Replacement of Left Hip Joint with Synthetic Substitute, Uncemented, Open Approach (ICD-10-PCS; principal; 2017-03-02 07:30)
DX: M16.12 Unilateral primary osteoarthritis, left hip (principal); C61 Malignant neoplasm of prostate; G62.9 Polyneuropathy, unspecified; D62 Acute posthemorrhagic anemia; E78.5 Hyperlipidemia, unspecified; I10 Essential (primary) hypertension; J44.9 Chronic obstructive pulmonary disease, unspecified; K21.9 Gastro-esophageal reflux disease without esophagitis; N40.0 Benign prostatic hyperplasia without lower urinary tract symptoms; Z79.82 Long term (current) use of aspirin; Z87.891 Personal history of nicotine dependence; Z96.651 Presence of right artificial knee joint; Z91.041 Radiographic dye allergy status; Z88.8 Allergy status to other drugs, medicaments and biological substances; K59.00 Constipation, unspecified; E78.00 Pure hypercholesterolemia, unspecified

== ENCOUNTER 2017-06-26 08:41 | Inpatient (IN) | payer BC ==
[2017-06-26] MEDS ORDERED: Albuterol-Ipratrop 3 mg / 0.5 (3 ml) UD IH STA (08:55)
--- NOTE | 2017-06-26 08:58 | ED PDOC ---
Arrival/HPI - General Chief Complaint: Chest Pain Time Seen by Provider: 06/26/17 08:46 Historian: Patient - History of Present Illness Narrative History of Present Illness (Text): 06/26/17 08:50 61 year old male, whose PMH includes hypertension, COPD, left hip replacement, and cardiac catheterization (in February), who presents to the emergency department complaining of intermittent episodes of chest pain, and shortness of breath since one day ago. Patient reports walking yesterday and developed shortness of breath and chest pain, which resolved with rest. Last night the same symptoms developed and chest pain resolved, but he continues to have shortness of breath. Patient notes quitting smoking 20 years ago and is an occasional drinker. Patient denies cough, congestion, URI, fever, or chills. No other complaints were made. Time/Duration: 24 hours Symptom Onset: Sudden Symptom Course: Unchanged, Intermittent Activities at Onset: Light Context: Walking Associated Symptoms (Text): 06/26/17 10:18 Episode of chest pain and shortness of breath yesterday while walking which was relieved by rest. Chest pain and dyspnea again overnight while sleeping. The pain is resolved but he remains dyspneic. Cardiac catheterization in February of this year showing a 70% LAD lesion. Past Medical History - Provider Review Nursing Documentation Reviewed: Yes - Infectious Disease Hx of Infectious Diseases: None - Cardiac Hx Hypertension: Yes - Pulmonary Hx Chronic Obstructive Pulmonary Disease (COPD): Yes - Neurological Hx Paralysis: No - Renal Other/Comment: PROSTATE CA NEW DX 04/2015 - Endocrine/Metabolic Hx Endocrine Disorders: No - Hematological/Oncological Hx Cancer: Yes (Prostate with radiation treatment) - Musculoskeletal/Rheumatological Hx Falls: No - Gastrointestinal Hx Gastrointestinal Disorders: Yes Hx Gastroesophageal Reflux: Yes - Genitourinary/Gynecological Hx Prostate Cancer: Yes Hx Prostate Problems: Yes Hx Reproductive Disorders: No - Psychiatric Hx Emotional Abuse: No Hx Physical Abuse: No Hx Substance Use: No - Surgical History Hx Joint Replacement: Yes (Right knee, Left hip) - Anesthesia Hx Anesthesia Reactions: No Hx Malignant Hyperthermia: No - Suicidal Assessment Feels Threatened In Home Enviroment: No Family/Social History - Physician Review Nursing Documentation Reviewed: Yes Family/Social History: Unknown Family HX Smoking Status: Former Smoker Hx Alcohol Use: Yes (SOCIAL) Hx Substance Use: No Allergies/Home Meds Allergies/Adverse Reactions: Allergies Iodine and Iodide Containing Produc Allergy (Severe, Verified 06/26/17 12:08) ANGIOEDEMA/HIVES Home Medications: Home Meds Medication Instructions Recorded Confirmed Aspirin [Aspirin EC] 81 mg PO DAILY 09/11/14 06/26/17 Cholecalciferol [Vitamin D 1000 IU] 2,000 iu PO DAILY 09/11/14 06/26/17 Esomeprazole Magnesium [Nexium] 40 mg PO DAILY 09/11/14 06/26/17 Rosuvastatin Calcium [Crestor] 10 mg PO DAILY 02/03/17 06/26/17 Tamsulosin [Flomax] 0.4 mg PO DAILY 02/03/17 06/26/17 amLODIPine [Norvasc] 10 mg PO DAILY 02/03/17 06/26/17 Metoprolol Succinate [Toprol Xl] 25 mg PO DAILY 02/17/17 06/26/17 Review of Systems - Physician Review All systems were reviewed & negative as marked: Yes - Review of Systems Constitutional: absent: Fevers ENT: absent: Sinus Congestion Respiratory: SOB. absent: Cough Cardiovascular: Chest Pain Physical Exam Vital Signs Temp Pulse Resp BP Pulse Ox 06/26/17 12:01 98 F 78 19 122/72 95 06/26/17 10:43 136/71 06/26/17 08:41 98 F 76 19 136/71 94 L Appearance: Positive for: Well-Appearing, Non-Toxic, Comfortable Pain Distress: None Mental Status: Positive for: Alert and Oriented X 3 - Systems Exam Head: Present: Atraumatic, Normocephalic Pupils: Present: PERRL Extroacular Muscles: Present: EOMI Conjunctiva: Present: Normal Respiratory/Chest: Present: Wheezes (mild bilateral wheezing). No: Clear to Auscultation, Respiratory Distress, Accessory Muscle Use, Rales, Rhonchi Cardiovascular: Present: Regular Rate and Rhythm, Normal S1, S2. No: Murmurs Abdomen: Present: Normal Bowel Sounds. No: Tenderness, Distention, Peritoneal Signs, Rebound, Guarding Neurological: Present: GCS=15, CN II-XII Intact, Speech Normal Skin: Present: Warm, Dry, Normal Color. No: Rashes Psychiatric: Present: Alert, Oriented x 3, Normal Insight, Normal Concentration Medical Decision Making ED Course and Treatment: 06/26/17 Impression: 61 year old male with mild bilateral wheezing on exam complaining of shortness of breath. Plan: -- EKG -- Chest X-ray -- Labs -- Duoneb and Aspirin -- Reassess and disposition Progress Notes: 06/26/17 09:35 Chest X-ray: Creator : Mark Barbosa MD COMPARISON: Comparison made with chest radiograph 02/03/2017. Comparison also made with CTA chest is 06/05/2015. FINDINGS: LUNGS: There are mild to moderate diffuse interstitial infiltrates ; rule out impaction versus pulmonary edema/CHF PLEURA: No significant pleural effusion identified, no pneumothorax apparent. CARDIOVASCULAR: Heart size is upper limits of normal/ borderline enlarged. OSSEOUS STRUCTURES: No significant abnormalities. VISUALIZED UPPER ABDOMEN: Normal. OTHER FINDINGS: None. IMPRESSION: There are mild to moderate diffuse interstitial infiltrates ; rule out impaction versus pulmonary edema/CHF 06/26/17 10:[address] Quach who is aware of plan. 06/26/17 11:08 Discussed with , who will admit to 's service. - Lab Interpretations Lab Results: 06/26/17 09:00 06/26/17 09:20 Lab Results 06/26/17 11:07: PT 11.3, INR 0.98, APTT 25.6, D-Dimer, Quantitative 246 H 06/26/17 09:20: Sodium 140, Potassium 3.7, Chloride 109 H, Carbon Dioxide 21, Anion Gap 14, BUN 18, Creatinine 0.8, Est GFR ( Amer) > 60, Est GFR (Non- Af Amer) > 60, Random Glucose 104, Calcium 8.6, Magnesium 1.8, Total Bilirubin 0.3, AST 27, ALT 34, Alkaline Phosphatase 52, Lactate Dehydrogenase 442, Total Creatine Kinase 124, Troponin I 0.13 H* D, NT-Pro-B Natriuret Pep 1640 H, Total Protein 6.3, Albumin 3.8, Globulin 2.5, Albumin/Globulin Ratio 1.5, Triglycerides 65, Cholesterol 128 L, LDL Cholesterol Direct 50, HDL Cholesterol 58 06/26/17 09:00: PT Cancelled, INR Cancelled, APTT Cancelled, D-Dimer, Quantitative Cancelled 06/26/17 09:00: WBC 8.8 D, RBC 4.37, Hgb 12.7 L D, Hct 38.5 L, MCV 88.1 D, MCH 29.1, MCHC 33.0, RDW 13.5, Plt Count 204, MPV 9.9, Gran % 79.5 H, Lymph % ( Auto) 13.1 L, [place] % (Auto) 7.1 H, Eos % (Auto) 0.2 L, Baso % (Auto) 0.1, Gran # 7.01 H, Lymph # (Auto) 1.2, [place] # (Auto) 0.6, Eos # (Auto) 0.0, Baso # (Auto ) 0.01 I have reviewed the lab results: Yes - RAD Interpretation Radiology Orders: 06/26/17 08:54 CHEST PORTABLE [RAD] Stat [place] Flap Inserter: Radiologist - EKG Interpretation Interpreted by ED Physician: Yes Type: 12 lead EKG - Medication Orders Current Medication Orders: Amlodipine Besylate (Norvasc) 10 mg PO DAILY [facility] Aspirin (Ecotrin) 81 mg PO DAILY [facility] Enoxaparin Sodium (Lovenox) 100 mg SC Q12 [facility] PRN Reason: Protocol Gabapentin (Neurontin) 300 mg PO TID [facility] PRN Reason: Protocol Metoprolol Succinate (Toprol Xl) 25 mg PO DAILY [facility] Tamsulosin HCl (Flomax) 0.4 mg PO HS [facility] Discontinued Medications Albuterol/Ipratropium (Duoneb 3 Mg/0.5 Mg (3 Ml) Ud) 3 ml IH ONCE STA Stop: 06/26/17 08:56 Last Admin: 06/26/17 09:16 Dose: 3 ml Aspirin (Aspirin Chewable) 324 mg PO ONCE ONE Stop: 06/26/17 08:56 Last Admin: 06/26/17 09:16 Dose: 243 mg Comments: patient took 81 mg of aspirin this morning. primary RN aware. Enoxaparin Sodium (Lovenox) 100 mg SC STAT STA PRN Reason: Protocol Stop: 06/26/17 11:01 Last Admin: 06/26/17 11:29 Dose: 100 mg Subcutaneous Administrations Document 06/26/17 11:29 GMI (Rec: 06/26/17 11:30 GMI [id number]) Injection Site MAR Injection Site Left Arm Charges for Administration # of Subcutaneous Administrations 1 Furosemide (Lasix) 40 mg IVP ONCE ONE Stop: 06/26/17 10:05 Last Admin: 06/26/17 10:43 Dose: 40 mg MAR Blood Pressure Document 06/26/17 10:43 GMI (Rec: 06/26/17 10:43 GMI [id number]) Blood Pressure Blood Pressure (100/60-150/90) 136/71 IVP Administration Document 06/26/17 10:43 GMI (Rec: 06/26/17 10:43 GMI [id number]) Charges for Administration # of IVP Administrations 1 Nitroglycerin (Nitro-Bid 2% Oint) 1 ea TOP STAT STA Stop: 06/26/17 10:05 Last Admin: 06/26/17 10:43 Dose: 1 ea - Scribe Statement The provider has reviewed the documentation as recorded by the Brodieibzoe Duarte Provider Scribe Attestation: All medical record entries made by the Scribe were at my direction and personally dictated by me. I have reviewed the chart and agree that the record accurately reflects my personal performance of the history, physical exam, medical decision making, and the department course for this patient. I have also personally directed, reviewed, and agree with the discharge instructions and disposition. Disposition/Present on Arrival - Present on Arrival Any Indicators Present on Arrival: No History of DVT/PE: No History of Uncontrolled Diabetes: No Urinary Catheter: No History of Decub. Ulcer: No History Surgical Site Infection Following: Orthopedic Procedures - Disposition Have Diagnosis and Disposition been Completed?: Yes Diagnosis: Chest pain, Myocardial infarction, Elevated troponin, Dyspnea, Congestive heart failure, Elevated brain natriuretic peptide (BNP) level, Anemia Disposition: HOSPITALIZED Disposition Time: 11:10 Patient Plan: Admission, Telemetry Patient Problems: Current Active Problems Problem Status Onset Anemia Acute Chest pain Acute Congestive heart failure Acute Dyspnea Acute Elevated brain natriuretic peptide (BNP) level Acute Elevated troponin Acute Myocardial infarction Acute Condition: SERIOUS
[2017-06-26 09:17] LABS: BASO # 0.01 K/mm3 (0.0-2.0); BASO % 0.1 % (0.0-3.0); EOS % 0.2 % (1.5-5.0); GRAN # 7.01 (1.4-6.5); GRAN % 79.5 % (50.0-68.0); HEMOGLOBIN 12.7 g/dL (14.0-18.0); LYMPH # 1.2 (1.2-3.4); LYMPH % 13.1 % (22.0-35.0); MEAN CELL VOLUME 88.1 fl (80.0-105.0); MEAN CORPUSCULAR HEMOGLOBIN 29.1 pg (25.0-35.0); MEAN PLATELET VOLUME 9.9 fl (7.0-11.0); MONO # 0.6 (0.1-0.6); MONO % 7.1 % (1.0-6.0); RBC 4.37 10^6/uL (3.5-6.1); RED CELL DISTRIBUTION WIDTH 13.5 % (11.5-14.5); WHITE BLOOD COUNT 8.8 10^3/ul (4.5-11.0)
--- NOTE | 2017-06-26 09:34 | RAD ---
HISTORY: sob COMPARISON: Comparison made with chest radiograph 02/03/2017. Comparison also made with CTA chest is 06/05/2015. FINDINGS: LUNGS: There are mild to moderate diffuse interstitial infiltrates ; rule out impaction versus pulmonary edema/CHF PLEURA: No significant pleural effusion identified, no pneumothorax apparent. CARDIOVASCULAR: Heart size is upper limits of normal/ borderline enlarged. OSSEOUS STRUCTURES: No significant abnormalities. VISUALIZED UPPER ABDOMEN: Normal. OTHER FINDINGS: None. IMPRESSION: There are mild to moderate diffuse interstitial infiltrates ; rule out impaction versus pulmonary edema/CHF
[2017-06-26 09:44] LABS: ALB/GLOB RATIO 1.5 (1.1-1.8); ALBUMIN 3.8 g/dL (3.0-4.8); ALT/SGPT 34 U/L (7-56); AST/SGOT 27 U/L (17-59); BLOOD UREA NITROGEN 18 mg/dL (7-21); CALCIUM 8.6 mg/dL (8.4-10.5); GFR AFRICAN-AMERICAN > 60; GFR NON-AFRICAN AMERICAN > 60
[2017-06-26 09:57] LABS: B-TYPE NATRIURETIC PEPTIDE 1640 pg/mL (0-450); TROPONIN I 0.13 ng/mL
[2017-06-26] MEDS ORDERED: Nitroglycerin 2% Ointment Foilpak UD TOP STA (10:04)
[2017-06-26] MEDS ORDERED: Enoxaparin 40 mg Syringe SC STA (10:54)
[2017-06-26] MEDS ORDERED: Enoxaparin 100 mg Syringe SC STA (11:00)
[2017-06-26 11:18] LABS: INR 0.98 (0.93-1.08); PARTIAL THROMBOPLASTIN TIME 25.6 Seconds (25.1-36.5); PROTHROMBIN TIME 11.3 SECONDS (9.4-12.5)
[2017-06-26 11:32] LABS: URINE BILIRUBIN NEGATIVE (NEGATIVE); URINE BLOOD NEGATIVE (NEGATIVE); URINE GLUCOSE (UA) NEGATIVE (NEGATIVE); URINE LEUKOCYTE ESTERASE NEGATIVE Leu/uL (NEGATIVE); URINE PROTEIN NEGATIVE mg/dL (<30 mg/dL); URINE UROBILINOGEN 0.2 E.U./dL (<1 E.U./dL)
[2017-06-26 11:35] LABS: URINE APPEARANCE CLEAR (CLEAR); URINE COLOR YELLOW (YELLOW)
[2017-06-26 11:46] LABS: HDL CHOLESTEROL 58 mg/dL (29-60)
[2017-06-26 11:57] LABS: LDL CHOLESTEROL 50 mg/dL (0-129)
[2017-06-26] MEDS: Enoxaparin 100 mg Syringe SC SCH ×2 (12:50→22:23)
[2017-06-26] MEDS: Metoprolol Succinate 25 mg XL Tab PO SCH (13:09)
[2017-06-26] MEDS ORDERED: Pneumococcal 23-Valent Vaccine IM ONE (13:35)
[2017-06-26 13:36] VITALS: BMI 32.8
[2017-06-26] MEDS ORDERED: Albuterol-Ipratrop 3 mg / 0.5 (3 ml) UD IH PRN (18:22)
[2017-06-26] MEDS: Albuterol-Ipratrop 3 mg / 0.5 (3 ml) UD IH SCH (21:30)
--- NOTE | 2017-06-26 21:33 | CT ---
EXAM: CT Chest Without Intravenous Contrast CLINICAL HISTORY: 61 years old, male; Pain; Chest pain; Patient HX: Sob/chest pain TECHNIQUE: Axial computed tomography images of the chest without intravenous contrast. All CT scans at this facility use one or more dose reduction techniques, viz.: automated exposure control; ma/kV adjustment per patient size (including targeted exams where dose is matched to indication; i.e. head); or iterative reconstruction technique. Coronal and sagittal reformatted images were created and reviewed. COMPARISON: CT - ANGIO CHEST PE PROTOCOL 2015-06-05 19:36 FINDINGS: Limitations: Lack of intravenous contrast. Lungs: Mild interlobular septal thickening. Minimal peripheral atelectasis/scarring. Few cysts or bullae. No consolidation. RLL calcified granuloma. Several pulmonary nodules, up to 0.8 cm, grossly stable. Pleural space: Small bilateral pleural effusions. No pneumothorax. Heart: No cardiomegaly. Small focal pericardial effusion. Mild coronary artery calcifications. Bones/joints: Probable bone islands. Mild degenerative changes of spine. No acute fracture. Soft tissues: Unremarkable. Vasculature: Mild atherosclerotic disease. Lymph nodes: No pathologically enlarged lymph nodes. Liver: Small calcification. IMPRESSION: 1. Probable mild interstitial edema. Clinical correlation is needed. 2. Incidental/non-acute findings are described above.
[2017-06-27] MEDS: Albuterol-Ipratrop 3 mg / 0.5 (3 ml) UD IH SCH ×3 (03:10→21:00)
[2017-06-27 07:22] LABS: BASO # 0.03 K/mm3 (0.0-2.0); BASO % 0.4 % (0.0-3.0); EOS # 0.1 (0.0-0.7); EOS % 1.2 % (1.5-5.0); GRAN # 5.34 (1.4-6.5); GRAN % 73.5 % (50.0-68.0); HEMOGLOBIN 12.3 g/dL (14.0-18.0); LYMPH # 1.1 (1.2-3.4); MEAN CELL VOLUME 88.1 fl (80.0-105.0); MEAN CORPUSCULAR HEMOGLOBIN 29.2 pg (25.0-35.0); MEAN CORPUSCULAR HGB CONC 33.2 g/dl (31.0-37.0); MEAN PLATELET VOLUME 9.8 fl (7.0-11.0); MONO # 0.7 (0.1-0.6); MONO % 9.9 % (1.0-6.0); RBC 4.21 10^6/uL (3.5-6.1); RED CELL DISTRIBUTION WIDTH 13.6 % (11.5-14.5); WHITE BLOOD COUNT 7.3 10^3/ul (4.5-11.0)
[2017-06-27 07:36] LABS: ALBUMIN 3.7 g/dL (3.0-4.8); BLOOD UREA NITROGEN 18 mg/dL (7-21); CALCIUM 8.4 mg/dL (8.4-10.5); GFR AFRICAN-AMERICAN > 60; GFR NON-AFRICAN AMERICAN > 60
[2017-06-27 07:37] LABS: ALB/GLOB RATIO 1.5 (1.1-1.8); ALT/SGPT 31 U/L (7-56); AST/SGOT 20 U/L (17-59)
[2017-06-27 07:46] LABS: TROPONIN I 0.12 ng/mL
[2017-06-27 08:28] LABS: FREE T4 0.89 ng/dL (0.78-2.19)
--- NOTE | 2017-06-27 09:25 | CON ---
DATE: 06/27/2017 CONSULTATION INDICATIONS: Chest pain, positive troponin. HISTORY OF PRESENT ILLNESS: This is a 61-year-old man, known to me, admitted with chest pain beginning Wednesday, described as a mid chest oppressive feeling. Early Wednesday morning, he woke with the discomfort again. It was associated with shortness of breath. He came to the emergency room. He was found to have an abnormal chest x-ray with increased vascular markings. His EKG was benign. First troponin was unremarkable. He was treated with respiratory treatments and IV Lasix. He improved. He has had no further chest pain. His breathing is improved today on telemetry. The second troponin was elevated. There is no orthopnea, PND, syncope, presyncope, lightheadedness, dizziness or vertigo. No palpitations, edema or claudication. No fever, chills, cough, sputum production, hemoptysis. No abdominal pain, nausea, vomiting, diarrhea, constipation or melena. PAST MEDICAL HISTORY: Notable for coronary artery disease based on cardiac catheterization 03/04. This revealed a 50% distal LAD lesion. He was treated medically. There is a history of hypertension, hyperlipidemia, low vitamin D level, prostate cancer. There is no history of rheumatic fever, myocardial infarction, arrhythmia, stroke, TIA or diabetes. No history of gout. MEDICATIONS AT THE TIME OF ADMISSION: Include aspirin, Crestor, Flomax, Neurontin, Nexium, Norvasc, multivitamin, metoprolol, vitamin D. ALLERGIES: HE NOTES AN ALLERGY TO IODINE. SOCIAL HISTORY: He lives at home with his . He does not smoke. He does not drink. He is ambulatory. FAMILY HISTORY: Noncontributory. REVIEW OF SYSTEMS: Ten-point review of systems is otherwise unremarkable except as noted above. PHYSICAL EXAMINATION: GENERAL: He is a well-developed male, lying in bed on telemetry, in no acute distress. VITAL SIGNS: Notable for sinus rhythm, he is afebrile, blood pressure 128/84, respirations 20, O2 sat 97% on nasal cannula and room air. HEENT: Reveals no neck vein distention, thyromegaly or carotid bruits. Mucous membranes moist. Conjunctivae pink. NECK: Supple. LUNGS: Lung hoyt, a few scattered rales at the bases. HEART: Examination of the heart revealed normal first and second heart sounds. ABDOMEN: Soft. Bowel sounds present. No mass, organomegaly, tenderness, rebound or guarding. EXTREMITIES: Revealed no cyanosis, clubbing or edema. No tenderness in the calves. NEUROLOGIC: Awake, alert and oriented. PSYCHIATRIC: Normal as to mood and affect. SKIN: Warm and dry. No rash or cellulitis. LABORATORY DATA AND IMAGING: The chest x-ray revealed mild to moderate diffuse interstitial infiltrate, etc. CT scan of the chest without contrast revealed small pulmonary nodules. Probable mild interstitial edema. EKG demonstrates regular sinus rhythm. Poor R-wave progression. Mild nonspecific ST-wave changes. No change from a previous EKG. White count normal, hemoglobin 12.3, hematocrit 37.1, platelet count normal. PT, INR, PTT unremarkable. D-dimer elevated at 246. Electrolytes: BUN, creatinine, blood sugar, LFTs, CK all unremarkable. Troponin 0.13, 0.28, 0.12. BNP 1640. Cholesterol 128, LDL 50, HDL 58, triglycerides 65. T4 normal. Repeat potassium this morning 3.4. Urinalysis is unremarkable. IMPRESSION: Isaac Zeng is a 61-year-old man with a 50% left anterior descending lesion on a catheterization 02/2017, who presents with typical oppressive mid chest discomfort associated with shortness of breath on Wednesday and Wednesday, associated with mildly elevated troponins and evidence of congestive heart failure on chest x-ray and clinically, which responded to treatment with IV Lasix. He is asymptomatic this morning, resting in bed on telemetry. He has received aspirin, albuterol, Lovenox, nitroglycerin paste, metoprolol. We will continue Flomax, add PO potassium and p.o. Lasix. He is getting Neurontin and Norvasc. I will add Plavix with a loading dose today. I will repeat his EKG. I will order an echocardiogram. He will be at bedrest with bathroom privileges. We will plan a cardiac catheterization for tomorrow unless he has recurrent chest pain, in which case we will do it on a more urgent basis. Pedro Pablo Munoz MD DONN[facility]
--- NOTE | 2017-06-27 09:29 | CARD ---
APPROVED REPORT EKG Measurement Heart [id number] <Conclusion> Normal sinus rhythm Mild NSSTW changes PRWP No change
[2017-06-27] MEDS: Metoprolol Succinate 25 mg XL Tab PO SCH (09:58)
[2017-06-27] MEDS: Enoxaparin 100 mg Syringe SC SCH ×2 (10:00→21:06)
[2017-06-27] MEDS: Potassium Chloride 20 mEq ER Tab PO SCH ×2 (10:00→18:19)
--- NOTE | 2017-06-27 14:54 | PN ---
DATE: 06/27/2017 SUBJECTIVE: The patient is 61 years old, seen and examined, sitting in chair. Seems to be comfortable. No chest pain. Does complain of shortness of breath on even walking to the bathroom. No cough. No congestion. No fever. No chills. Eating and tolerating. PHYSICAL EXAMINATION: VITAL SIGNS: The patient is afebrile, pulse 62, respirations 18, blood pressure 119/69. LUNGS: Bilateral fair airflow. No rhonchi or crackle. HEART: S1 and S2 audible. ABDOMEN: Soft, obese, nontender. No rebound. No guarding. NEUROLOGIC: He is awake, alert, oriented, communicative. LABORATORY EXAM: WBC 7.3, hemoglobin 12.3, hematocrit 37, platelets 197. D-dimer 246. Chemistry: Sodium 143, potassium 3.4, chloride 104, CO2 of 20, BUN 18, creatinine 0.9, blood sugar of 94. Troponin went up to 0.28 and fourth one is 0.12. Procalcitonin is 0.04. ASSESSMENT: 1. Dxa-XH-wehfbenoi myocardial infarction. 2. Chronic obstructive pulmonary disease. 3. Congestive heart failure. 4. Hyperlipidemia. 5. Status post left hip replacement in February, status post cardiac catheterization in February, but unremarkable. PLAN: The patient is going to be n.p.o. after midnight. There is plan for catheterization tomorrow. We will continue him on Lovenox, beta blockers, aspirin. Echocardiogram has to be repeated and has been ordered by metal drill press operator. The patient will be followed by Dr. Emerson in the a.m. Gamaliel Salas MD
[2017-06-28] MEDS: Albuterol-Ipratrop 3 mg / 0.5 (3 ml) UD IH SCH ×4 (02:19→20:24)
[2017-06-28 06:28] LABS: BLOOD UREA NITROGEN 16 mg/dL (7-21); CALCIUM 8.8 mg/dL (8.4-10.5); GFR AFRICAN-AMERICAN > 60; GFR NON-AFRICAN AMERICAN > 60
[2017-06-28 06:31] LABS: TROPONIN I 0.09 ng/mL
--- NOTE | 2017-06-28 07:50 | CP.PCM.PN ---
Subjective - Date & Time of Evaluation Date of Evaluation: 06/28/17 Time of Evaluation: 07:00 - Subjective Subjective: Stable on 2R. He feels OK. No further CP or SOB. V/S noted. RSR PE: Lungs: clear Cor.: S1S2 Abd.: soft Ext.: no edema Neuro.: alert Labs noted: Cr.= 0.9, K+= 3.9, trop.= 0.09 ECG 06/27: RSR, Leftward axis, No change Objective - Vital Signs/Intake and Output Vital Signs (last 24 hours): Temp Pulse Resp BP Pulse Ox 98.0 F 78 18 115/65 96 06/28/17 06:00 06/28/17 06:00 06/28/17 06:00 06/28/17 06:00 06/28/17 06:00 Intake and Output: 06/28/17 06/28/17 06:59 18:59 Intake Total 0 Balance 0 - Medications Medications: Current Medications Albuterol/Ipratropium (Duoneb 3 Mg/0.5 Mg (3 Ml) Ud) 3 ml IH Q2H PRN PRN Reason: Shortness of Breath Albuterol/Ipratropium (Duoneb 3 Mg/0.5 Mg (3 Ml) Ud) 3 ml IH [id number] [facility] Last Admin: 06/28/17 07:36 Dose: 3 ml Amlodipine Besylate (Norvasc) 10 mg PO DAILY [facility] Last Admin: 06/27/17 09:59 Dose: 10 mg Aspirin (Ecotrin) 81 mg PO DAILY [facility] Last Admin: 06/27/17 09:59 Dose: 81 mg Atorvastatin Calcium (Lipitor) 20 mg PO DIN [facility] Last Admin: 06/27/17 18:19 Dose: 20 mg Clopidogrel Bisulfate (Plavix) 75 mg PO DAILY [facility] Furosemide (Lasix) 20 mg PO DAILY [facility] Last Admin: 06/27/17 09:59 Dose: 20 mg Gabapentin (Neurontin) 300 mg PO TID [facility] PRN Reason: Protocol Last Admin: 06/27/17 18:18 Dose: 300 mg Metoprolol Succinate (Toprol Xl) 25 mg PO DAILY [facility] Last Admin: 06/27/17 09:58 Dose: 25 mg Potassium Chloride (K-Dur 20 Meq Er Tab) 20 meq PO BID [facility] Last Admin: 06/27/17 18:19 Dose: 20 meq Tamsulosin HCl (Flomax) 0.4 mg PO HS [facility] Last Admin: 06/27/17 21:06 Dose: 0.4 mg - Labs Labs: 06/27/17 06:00 06/28/17 05:30 PT 11.3 SECONDS (9.4-12.5) 06/26/17 11:07 INR 0.98 (0.93-1.08) 06/26/17 11:07 APTT 25.6 Seconds (25.1-36.5) 06/26/17 11:07 Assessment and Plan - Assessment and Plan (Free Text) Assessment: CP/SOB/+ trops c/w NSTEMI H/O CAD with 50% mid/distal LAD lesion tx'd medically HBP HLD Low Vit. D. Prostate Cancer Plan: Echo this AM. Cardiac cath later today Additional recs to follow. Case D/W Drs. Chen and Ki.
--- NOTE | 2017-06-28 07:52 | PN ---
DATE: 06/28/2017 SUBJECTIVE: The patient has no complaints of any chest pain. No shortness of breath. No headaches. PHYSICAL EXAMINATION: VITAL SIGNS: Temperature is 98.4, pulse of 66, blood pressure 125/70, respirations 18. GENERAL: The patient is lying in bed, flat, comfortable. HEENT: No oral lesion. Anicteric sclerae. Moist mucosa. NECK: No JVD, adenopathy, or thyromegaly. CARDIOVASCULAR: S1 and S2, regular. No murmurs, rubs, or gallops. LUNGS: Clear to auscultation bilaterally. No wheeze, rales, or rhonchi. ABDOMEN: Bowel sounds are positive. Soft, nontender and nondistended. EXTREMITIES: No cyanosis, clubbing or edema. DATA: CT of the chest shows probable mild interstitial edema. ASSESSMENT: 1. Ggn-ZF-mxwcaavxu myocardial infarction. 2. Coronary artery disease. 3. Hypertension. 4. Congestive heart failure secondary to diastolic dysfunction. PLAN: The patient is currently comfortable. He did have elevated troponin. His proBNP was elevated also. His procalcitonin level was normal. His thyroid function was normal as well. He is on aspirin. He is going to continue with Flomax. He is on Lovenox for anticoagulation. He is on Lipitor for dyslipidemia. The patient is on Neurontin for neuropathy. He is on Norvasc for hypertension. He is on metoprolol. He had an echo, that is pending. He is on a heart-healthy diet. He is being followed by Cardiology and might be planned for cardiac cath today. James Emerson MD
--- NOTE | 2017-06-28 08:27 | HP ---
DATE: 06/26/2017 HISTORY OF PRESENT ILLNESS: The patient is 61-year-old known to me from intermittent office visits. The patient states he has been having intermittent chest pain and pressure. Yesterday when he went for a walk, while he was jogging, he felt a chest pressure and was having difficulty breathing. The patient recently has hip replacement in 02/[address] Delgado. Since then, he has been getting therapy, prior to that he has cardiac cath from cardiology clearance and was told he is okay. The patient denies any fever or chills. No history of nausea or vomiting. No history of diarrhea. No cough, congestion. No hemoptysis. No hematemesis. PAST MEDICAL HISTORY: Significant for: 1. Hypertension. 2. Gastroesophageal reflux disease. 3. History of CA prostate. 4. Recent left hip surgery. 5. History of COPD. ALLERGIES: HE IS ALLERGIC TO IODINE AND IODINE CONTAINING PRODUCTS. MEDICATIONS AT HOME: The patient is on amlodipine 10 mg daily, Flomax 0.4 daily, Crestor 10 mg daily, multivitamin, metoprolol 25 daily, gabapentin 300 three times a day, Nexium 40 mg daily, vitamin D and aspirin. SOCIAL HISTORY: He used to be a heavy smoker, quit in 1999. Socially drinks, , lives with his . PHYSICAL EXAMINATION: GENERAL: On examination, he is awake, alert, oriented, communicative. VITAL SIGNS: He is afebrile, pulse 57, respirations 16, blood pressure 108/54. LUNGS: Bilateral good airflow. No rhonchi or crackle. HEART: S1, S2 audible. ABDOMEN: Soft, nontender, obese. No hepatosplenomegaly. NEUROLOGICAL: He is awake, alert, oriented, communicative. Moves all extremities. No motor or sensory deficit. Cranial nerves are intact. LABORATORY EXAM: WBC 8.8, hemoglobin 12.7, hematocrit 38.5, platelet of 204. PT 11.3, INR 0.98. Chemistry: Sodium 140, potassium 3.7, chloride 109, CO2 21, BUN 18, creatinine 0.8, blood sugar of 104. LFTs are within normal limits. Troponin 0.13, followup is 0.28. Urinalysis is unremarkable. ASSESSMENT: 1. Non-ST elevation myocardial infarction. 2. Hypertension. 3. History of cancer of prostate. 4. Left hip replacement. 5. Iqma-cl-evakxuyp diffused interstitial infiltrate. PLAN: The patient is currently on aspirin, nebulizer treatment, start him on Lovenox. I will order for CT of the chest to rule out pneumonia and start him on nebulizer treatment. Cardiology consult by Dr. Munoz has been requested. Gamaliel Salas MD
--- NOTE | 2017-06-28 08:28 | CARD ---
APPROVED REPORT EKG Measurement Heart [id number] PA [id number] <Conclusion> Normal sinus rhythm Normal ECG Improved repolarization c/w ECG 06/26/17
[2017-06-28] MEDS: Potassium Chloride 20 mEq ER Tab PO SCH ×2 (10:08→17:39)
[2017-06-28] MEDS: Metoprolol Succinate 25 mg XL Tab PO SCH (10:08)
[2017-06-28] MEDS ORDERED: DiphenhydrAMINE 50 mg/ml Inj ONE (14:49)
[2017-06-28] MEDS ORDERED: Famotidine 20mg/50ml 20 MG/50 ML BAG IVPB ONE (14:49)
[2017-06-28] MEDS ORDERED: Iohexol 350mgl/ml 50 ML ONE (14:49)
[2017-06-28] MEDS ORDERED: Lidocaine 2% Inj (20ml) ONE (14:49)
[2017-06-28] MEDS ORDERED: Midazolam 2 MG/2 ML VIAL ONE ×2 (15:55→16:24)
[2017-06-28] MEDS ORDERED: Iohexol 350 MG/100 ML VIAL ONE (16:29)
[2017-06-28] MEDS ORDERED: Nitroglycerin 50mg in D5W 50 MG/250 ML BOTTLE IV ONE (16:30)
[2017-06-28] MEDS ORDERED: Sodium Chloride 0.9% 1,000 ML IV SCH (16:45)
--- NOTE | 2017-06-28 19:59 | CARDCATH ---
PROCEDURE DATE: 06/28/2017 PROCEDURES: 1. Selective left and right coronary angiography. 2. Left ventriculography. 3. Percutaneous coronary intervention of mid and distal left anterior descending artery with drug-eluting stents. 4. Right femoral arteriography. 5. Angio-Seal deployment. HISTORY: This is a 61-year-old man with known coronary artery disease, recently admitted with decompensated congestive heart failure and mild troponin elevation. He has profound anginal symptoms prior to admission and cardiac catheterization was advised. Recent catheterization revealed evidence of moderate triple vessel disease. INDICATION: Unstable angina, decompensated congestive heart failure. FINDINGS: HEMODYNAMICS: The aortic pressure was 120/76 with left ventricular pressure of 120/16. CORONARY ANATOMY: 1. The left mainstem was normal. 2. The LAD had no significant disease on the proximal as well as the early mid segment of the vessel. In the late mid segment of the vessel after the takeoff of the large diagonal branch shows long diffuse 60% stenosis. In the early distal segment, there was a focal 80% stenosis now seen. The vessel was of moderate size and wrapped around the apex. 3. Left circumflex artery gives rise to one bifurcating obtuse marginal branch which had a 70% stenosis in the first limb of the obtuse marginal branch. This was a fairly small vessel. 4. The right coronary artery was dominant and of moderate size. The proximal, mid, distal RCA was free of disease as was the PDA. The posterolateral branch had a 70% stenosis in its mid portion. This vessel was also fairly small size. LEFT VENTRICULOGRAPHY: A hand injection was performed in the left ventricle revealing evidence of normal wall motion with an ejection fraction of 55%. CORONARY INTERVENTION: Given the above findings, attempted PCI of the LAD lesion was then performed. A 3.5 EBU-guide catheter was utilized and 5000 units of intravenous heparin was administered. The lesions in the LAD were successfully crossed with the use of a [place] wire. Initial inflations were performed in the distal segment with the use of the 2.5 x 12 mm balloon. Following this, a 2.5 x 18 mm Resolute drug-eluting stent was advanced into the distal segment inflated to 12 atmospheres. This was continued for 45 seconds. Following this, a 2.75 x 26 mm Resolute drug-eluting stent was advanced into the late mid segment of the vessel with overlap into the previously placed stent, this was inflated to 14 atmosphere for 45 seconds. Following this, the balloon was deflated and advanced into the overlap segment and inflated to 12 atmospheres for 30 seconds. There is 0% residual stenosis following the intervention. CLAUDIA grade 3 flow was present before and after the intervention. RIGHT FEMORAL ARTERIOGRAM: A right femoral arteriogram was performed in the MILLER projection. This revealed no evidence of significant disease and appropriate level of arterial puncture. The puncture site was then closed with deployment of an Angio-Seal device. CONCLUSION: 1. Significant mid and distal LAD disease successfully treated with drug-eluting stent placement as described above. 2. Significant distal RCA and obtuse marginal branch disease. 3. Normal LV function. RECOMMENDATIONS: Given the above findings, the aspirin and Plavix therapy will be continued for at least 1 year. Standard risk factor control will be advised. Medical therapy for his other coronary disease at the time would be planned. Americo Chen MD cc: James Emerson MD
--- NOTE | 2017-06-28 22:26 | CARD ---
APPROVED REPORT EKG Measurement Heart [id number] [place] [id number] <Conclusion> Normal sinus rhythm Normal ECG
[2017-06-29] MEDS: Albuterol-Ipratrop 3 mg / 0.5 (3 ml) UD IH SCH ×3 (01:37→13:15)
[2017-06-29 06:03] LABS: GRAN # 8.95 (1.4-6.5); GRAN % 95.8 % (50.0-68.0); LYMPH # 0.3 (1.2-3.4); LYMPH % 3.1 % (22.0-35.0); MEAN CORPUSCULAR HEMOGLOBIN 29.7 pg (25.0-35.0); MEAN CORPUSCULAR HGB CONC 34.1 g/dl (31.0-37.0); MEAN PLATELET VOLUME 9.4 fl (7.0-11.0); MONO # 0.1 (0.1-0.6); MONO % 1.1 % (1.0-6.0); PLATELET COUNT 217 10^3/uL (120.0-450.0); RBC 4.85 10^6/uL (3.5-6.1); WHITE BLOOD COUNT 9.3 10^3/ul (4.5-11.0)
[2017-06-29 06:10] LABS: HEMOGLOBIN 14.4 g/dL (14.0-18.0)
[2017-06-29 06:29] LABS: BLOOD UREA NITROGEN 20 mg/dL (7-21); CALCIUM 9.5 mg/dL (8.4-10.5); GFR AFRICAN-AMERICAN > 60; GFR NON-AFRICAN AMERICAN > 60
[2017-06-29 06:32] LABS: BAND 1 % (0-2); LYMPHOCYTE 6 % (22.0-35.0); MONOCYTE 3 % (1.0-6.0); NEUTROPHIL 90 % (50.0-70.0); PLATELET ESTIMATE NORMAL (NORMAL)
[2017-06-29 06:38] VITALS: O2SAT 95
--- NOTE | 2017-06-29 08:05 | CP.PCM.PN ---
Subjective - Date & Time of Evaluation Date of Evaluation: 06/29/17 Time of Evaluation: 07:00 - Subjective Subjective: Stable on 2R s/p cath LAD PCI yesterday. He feels better without discomfort in the chest now. No SOB. V/S noted. RSR PE: Lungs: clear Cor.: S1S2 Abd.: soft Ext.: no edema Neuro.: alert Labs noted: CBC, BMP OK ECG 06/28: RSR, Leftward axis, No change Echo: Nl LV fx. See report. Cath report noted. Objective - Vital Signs/Intake and Output Vital Signs (last 24 hours): Temp Pulse Resp BP Pulse Ox 98.2 F 70 19 152/79 H 95 06/29/17 06:00 06/29/17 06:00 06/29/17 06:00 06/29/17 06:00 06/29/17 06:00 Intake and Output: 06/29/17 06/29/17 06:59 18:59 Intake Total 880 Output Total 1100 Balance -220 - Medications Medications: Current Medications Acetaminophen (Tylenol 325mg Tab) 650 mg PO Q4H PRN PRN Reason: Pain, Mild (1-3) Albuterol/Ipratropium (Duoneb 3 Mg/0.5 Mg (3 Ml) Ud) 3 ml IH Q2H PRN PRN Reason: Shortness of Breath Albuterol/Ipratropium (Duoneb 3 Mg/0.5 Mg (3 Ml) Ud) 3 ml IH [id number] [facility] Last Admin: 06/29/17 07:21 Dose: 3 ml Alprazolam (Xanax) 0.25 mg PO BID PRN PRN Reason: Anxiety Stop: 07/05/17 16:46 Last Admin: 06/28/17 22:06 Dose: 0.25 mg Amlodipine Besylate (Norvasc) 10 mg PO DAILY [facility] Last Admin: 06/28/17 10:07 Dose: 10 mg Aspirin (Ecotrin) 81 mg PO DAILY [facility] Last Admin: 06/28/17 10:07 Dose: 81 mg Atorvastatin Calcium (Lipitor) 20 mg PO DIN [facility] Last Admin: 06/28/17 17:38 Dose: 20 mg Clopidogrel Bisulfate (Plavix) 75 mg PO DAILY [facility] Last Admin: 06/28/17 10:07 Dose: 75 mg Docusate Sodium (Colace) 100 mg PO BID [facility] Last Admin: 06/28/17 17:38 Dose: 100 mg Furosemide (Lasix) 20 mg PO DAILY [facility] Last Admin: 06/28/17 10:08 Dose: 20 mg Gabapentin (Neurontin) 300 mg PO TID [facility] PRN Reason: Protocol Last Admin: 06/28/17 17:38 Dose: 300 mg Metoprolol Succinate (Toprol Xl) 25 mg PO DAILY [facility] Last Admin: 06/28/17 10:08 Dose: 25 mg Ondansetron HCl (Zofran Inj) 4 mg IV ONCE PRN PRN Reason: Nausea/Vomiting Potassium Chloride (K-Dur 20 Meq Er Tab) 20 meq PO BID [facility] Last Admin: 06/28/17 17:39 Dose: 20 meq Tamsulosin HCl (Flomax) 0.4 mg PO HS [facility] Last Admin: 06/28/17 22:06 Dose: 0.4 mg Zolpidem Tartrate (Ambien) 5 mg PO HS PRN PRN Reason: Insomnia - Labs Labs: 06/29/17 05:26 06/29/17 05:26 PT 11.3 SECONDS (9.4-12.5) 06/26/17 11:07 INR 0.98 (0.93-1.08) 06/26/17 11:07 APTT 25.6 Seconds (25.1-36.5) 06/26/17 11:07 Assessment and Plan - Assessment and Plan (Free Text) Assessment: CP/SOB/+ trops c/w NSTEMI H/O CAD with 50% mid/distal LAD lesion tx'd medically initially> mid/distal LAD worse > stents yesterday HBP HLD Low Vit. D. Prostate Cancer Plan: OOB/ambulate this AM D/C later today. D/C meds: Asa 81, plavix 75/day (min. 1 year), metoprolol 25, Crestor 10. + pre- admit meds: Flomax, neurontin, Vit D. Would D/C Nexium if melissa. Cardiac F/U in 1 week. RTW to be determined. Cardiac Rehab to be arranged. Low sat. fat diet.
--- NOTE | 2017-06-29 09:20 | CARD ---
APPROVED REPORT EXAM: Two-dimensional and M-mode echocardiogram with Doppler and color Doppler. Other Information Quality : AverageRhythm : INDICATION Dyspnea Chest Pain , NSTEMI 2D DIMENSIONS Left Atrium (2D)4.2 (1.6-4.0cm)IVSd1.0 (0.7-1.1cm) LVDd5.7 (3.9-5.9cm)PWd1.2 (0.7-1.1cm) LVDs3.9 (2.5-4.0cm)FS (%) 31.3 % LVEF (%)58.0 (>50%) M-Mode DIMENSIONS Aortic Root3.30 (2.2-3.7cm)Aortic Cusp Exc.1.70 (1.5-2.0cm) Aortic Valve AoV Peak Zhwjrlxb420.0cm/s Mitral Valve MV E Riugahjl04.9cm/sMV A Evykahwc14.2cm/sE/A ratio1.3 TDI Lateral E' Peak V10.20cm/sMedial E' Peak V6.82cm/sE/Lateral E'8.5 E/Medial E'12.7 Pulmonary Valve PV Peak Wgtrjdzm32.3cm/sPV Peak Grad.1mmHg Tricuspid Valve TR Peak Smyagbyn920ri/sRAP [id number] Peak Gr.23mmHg [id number] LEFT VENTRICLE The left ventricle is normal size. There is normal left ventricular wall thickness. The left ventricular function is normal. The left ventricular ejection fraction is within the normal range. There is normal LV segmental wall motion. RIGHT VENTRICLE The right ventricle is normal size. ATRIA The left atrium is mildly dilated. The right atrium size is normal. The interatrial septum is intact with no evidence for an atrial septal defect. AORTIC VALVE The aortic valve is normal in structure. MITRAL VALVE The mitral valve is normal in structure. Mitral regurgitation is mild. TRICUSPID VALVE The tricuspid valve is normal in structure. There is trace tricuspid regurgitation. PULMONIC VALVE The pulmonic valve is not well visualized. There is trace pulmonic valvular regurgitation. GREAT VESSELS The aortic root is normal in size. PERICARDIAL EFFUSION There is no pericardial effusion. <Conclusion> The left ventricle is normal size. There is normal left ventricular wall thickness. The left ventricular function is normal. Mitral regurgitation is mild.
[2017-06-29] MEDS: Metoprolol Succinate 25 mg XL Tab PO SCH (09:56)
[2017-06-29 12:12] VITALS: BP 145/78; PULSE 72; RESP 20; TEMP 98
--- NOTE | 2017-06-30 00:16 | DS ---
HISTORY OF PRESENT ILLNESS: This is a 61-year-old male who has come into the hospital and was found to have non-ST elevation DC. The patient had undergone cardiac cath and had stent placed by Dr. Chen. He says he feels well today. He has no complaints of any chest pain. No shortness of breath. No nausea, no vomiting. No fever, headaches, or chills. He is able to ambulate. He had an echo that was done that shows normal LV size and thickness. PHYSICAL EXAMINATION: VITAL SIGNS: Temperature 98.2, pulse 70, blood pressure 152/79, respirations 19, O2 saturation 95%. GENERAL: The patient is lying in bed, flat, comfortable. HEENT: No oral lesion. Anicteric sclerae. Moist mucosa. NECK: No JVD, adenopathy, or thyromegaly. CARDIOVASCULAR: S1 and S2, regular. No murmurs, rubs, or gallops. LUNGS: Clear to auscultation bilaterally. No wheeze, rales, or rhonchi. ABDOMEN: Bowel sounds are positive, soft, nontender and nondistended. EXTREMITIES: no cyanosis, clubbing or edema. ASSESSMENT: 1. Non-ST elevation myocardial infarction. 2. Coronary artery disease, status post stent x2. 3. Hypertension. 4. Congestive heart failure secondary to diastolic dysfunction. PLAN: The patient is currently comfortable. He is going to be discharged home today. He is on aspirin, Plavix, and metoprolol. The patient is on Neurontin for his neuropathy. He is on Norvasc for hypertension. He is on heart-healthy diet. CONDITION: Stable. ACTIVITIES: Increase as tolerated. Follow up with Dr. Chen in 1 week. Follow up with Dr. Restrepo in 1 to 2 weeks. I did let Dr. Restrepo know about the patient's discharge. James Emerson MD
== END 2017-06-29 13:44 | disposition home or self-care (01) | DRG 246 ==
LOC: ED 08:41 → ERH 11:10 → 2RSO 12:25 → 2RNO 06-28 17:02
PROVIDERS: ADMIT Internal Medicine Nephrology; ATTEND Internal Medicine Nephrology
PROC: 027034Z Dilation of Coronary Artery, One Artery with Drug-eluting Intraluminal Device, Percutaneous Approach (ICD-10-PCS; principal; 2017-06-28)
PROC: 4A023N7 Measurement of Cardiac Sampling and Pressure, Left Heart, Percutaneous Approach (ICD-10-PCS; 2017-06-28)
PROC: B2151ZZ Fluoroscopy of Left Heart using Low Osmolar Contrast (ICD-10-PCS; 2017-06-28)
PROC: B2111ZZ Fluoroscopy of Multiple Coronary Arteries using Low Osmolar Contrast (ICD-10-PCS; 2017-06-28)
DX: I21.4 Non-ST elevation (NSTEMI) myocardial infarction (principal); I50.33 Acute on chronic diastolic (congestive) heart failure; I25.110 Atherosclerotic heart disease of native coronary artery with unstable angina pectoris; I11.0 Hypertensive heart disease with heart failure; K21.9 Gastro-esophageal reflux disease without esophagitis; J44.9 Chronic obstructive pulmonary disease, unspecified; C61 Malignant neoplasm of prostate; G62.9 Polyneuropathy, unspecified; E78.5 Hyperlipidemia, unspecified; E55.9 Vitamin D deficiency, unspecified; D64.9 Anemia, unspecified; Z96.642 Presence of left artificial hip joint; Z87.891 Personal history of nicotine dependence; Z79.82 Long term (current) use of aspirin

== ENCOUNTER 2018-01-30 06:36 | Emergency (ER) | payer BC ==
[2018-01-30 06:48] VITALS: BMI 33.2
[2018-01-30 06:50] VITALS: RESP 18
--- NOTE | 2018-01-30 07:28 | ED PDOC ---
Arrival/HPI - General Chief Complaint: Finger,Hand,&Wrist Time Seen by Provider: 01/30/18 07:16 Historian: Patient - History of Present Illness Narrative History of Present Illness (Text): 01/30/18 07:24 A 62 year old male, whose past medical history includes, hypertension, COPD, left hip replacement, and cardiac catheterization, presents to the emergency department for further evaluation of painful nodules on the palms of both hands. The patient notes that he woke up this morning and noticed that his hands were feeling sore. He reports nodules developing on both palms. He notes he did not have them last night. He denies fevers, chills, headache, dizziness, chest pain, shortness of breath, dyspnea on exertion, cough, abdominal pain, nausea, vomiting, diarrhea, back pain, neck pain, urinary/bowel changes, or any other complaint. PMD: Dr. Ahumada Time/Duration: Other (This morning) Symptom Onset: Sudden Symptom Course: Unchanged Activities at Onset: Rest, Light Context: Home Past Medical History - Provider Review Nursing Documentation Reviewed: Yes - Infectious Disease Hx of Infectious Diseases: None - Cardiac Hx Cardiac Disorders: Yes (CAD) Hx Congestive Heart Failure: Yes (06-26-17) Hx Hypertension: Yes - Pulmonary Hx Respiratory Disorders: Yes (USED TO SMOKE PPD QUIT 1999) Hx Chronic Obstructive Pulmonary Disease (COPD): Yes - Neurological Hx Neurological Disorder: No - HEENT Hx HEENT Disorder: No - Renal Hx Renal Disorder: Yes Other/Comment: PROSTATE CA NEW DX 04/2015 - Endocrine/Metabolic Hx Endocrine Disorders: No - Hematological/Oncological Hx Blood Disorders: Yes Hx Anemia: Yes Hx Cancer: Yes (Prostate with radiation treatment) - Integumentary Hx Dermatological Disorder: No - Musculoskeletal/Rheumatological Hx Musculoskeletal Disorders: Yes Hx Degenerative Joint Disease: Yes (L HIP REPLACEMENT,RIGHT KNEE REPLACEMENT) Hx Falls: No - Gastrointestinal Hx Gastrointestinal Disorders: Yes (COLON POLYPS,INGUINAL HERNIA REPAIR) Hx Gastroesophageal Reflux: Yes - Genitourinary/Gynecological Hx Genitourinary Disorders: Yes (URINARY RETENTION H/O) Hx Prostate Problems: Yes (BPH) - Psychiatric Hx Emotional Abuse: No Hx Physical Abuse: No Hx Substance Use: No - Surgical History Hx Cardiac Catheterization: Yes Hx Joint Replacement: Yes (Right knee, Left hip) - Anesthesia Hx Anesthesia Reactions: No Hx Malignant Hyperthermia: No - Suicidal Assessment Feels Threatened In Home Enviroment: No Family/Social History - Physician Review Nursing Documentation Reviewed: Yes Family/Social History: No Known Family HX Smoking Status: Former Smoker Hx Alcohol Use: Yes (SOCIALLY,RARELY) Hx Substance Use: No Allergies/Home Meds Allergies/Adverse Reactions: Allergies Iodine and Iodide Containing Produc Allergy (Severe, Verified 06/26/17 12:08) ANGIOEDEMA/HIVES Home Medications: Home Meds Medication Instructions Recorded Confirmed Aspirin [Aspirin EC] 81 mg PO DAILY 09/11/14 01/30/18 Cholecalciferol [Vitamin D 1000 IU] 2,000 iu PO DAILY 09/11/14 01/30/18 Esomeprazole Magnesium [Nexium] 40 mg PO DAILY 09/11/14 01/30/18 Rosuvastatin Calcium [Crestor] 10 mg PO DAILY 02/03/17 01/30/18 Tamsulosin [Flomax] 0.4 mg PO DAILY 02/03/17 01/30/18 amLODIPine [Norvasc] 10 mg PO DAILY 02/03/17 01/30/18 Review of Systems - Physician Review All systems were reviewed & negative as marked: Yes - Review of Systems Constitutional: absent: Fevers Respiratory: absent: SOB, Cough Cardiovascular: absent: Chest Pain, [place] Gastrointestinal: absent: Abdominal Pain, Stool Changes, Diarrhea, Nausea, Vomiting Genitourinary Male: absent: Urinary Output Changes Musculoskeletal: absent: Back Pain, Neck Pain Neurological: absent: Headache, Dizziness Physical Exam - Physical Exam Narrative Physical Exam (Text): Gen: VS reviewed, alert, well developed, well nourished, nontoxic, mild distress. ENT: normal pharynx. Eye: EOMI, PERRL. Neck: no JVD, supple, no adenopathy. CV: regular rate, regular rhythm, no rubs, no murmur, no gallops, S1, S2, pulses equal and strong. Pulm: no distress, clear to auscultation, no wheeze, no rhonchi, breath sounds equal, no rales. Abd: soft, nontender, no guarding, no rebound, no rigidity, normal bowel sounds. Ext: no edema. Skin: good color, no cyanosis. Scant, tender, red nodules on the palms of both hands. Psych: responds appropriately to questions, normal affect. Neuro: oriented x 3, CN2-12 intact grossly, motor intact, sensation intact. Vital Signs Reviewed: Yes Vital Signs Temp Pulse Resp BP Pulse Ox 01/30/18 06:48 97.8 F 71 18 131/72 100 Temperature: Afebrile Blood Pressure: Normal Pulse: Regular Respiratory Rate: Normal Appearance: Positive for: Well-Appearing, Non-Toxic, Comfortable Pain Distress: None Mental Status: Positive for: Alert and Oriented X 3 Medical Decision Making ED Course and Treatment: 01/30/18 07:28 Impression: A 62 year old male presents to the emergency department for further evaluation of scant, tender, red nodules on the palms of both hands. Plan: -- Reassess and disposition Prior Visits: Notes and results from previous visits were reviewed. Progress Notes: 01/30/18 09:01 multiple phone calls to dermatology and no return call back. clinically, patient has a nonspecific red and tender nodules on the hands (primarily on the palms). there are no toxic components seen at this time, no fever, no muscles aches, no arthralgias, no murmur, no other appreciated rashes. it was agreed with the patient and to discharge and follow up with dermatology tomorrow but to return immediately for any new or worsening symptoms. patient discharged in stable condition. - Scribe Statement The provider has reviewed the documentation as recorded by the Irene Epps Provider Scribe Attestation: All medical record entries made by the Scribe were at my direction and personally dictated by me. I have reviewed the chart and agree that the record accurately reflects my personal performance of the history, physical exam, medical decision making, and the department course for this patient. I have also personally directed, reviewed, and agree with the discharge instructions and disposition. Disposition/Present on Arrival - Present on Arrival Any Indicators Present on Arrival: No History of DVT/PE: No History of Uncontrolled Diabetes: No Urinary Catheter: No History of Decub. Ulcer: No History Surgical Site Infection Following: Orthopedic Procedures - Disposition Have Diagnosis and Disposition been Completed?: Yes Diagnosis: Nodule of finger Disposition: HOME/ ROUTINE Disposition Time: 09:15 Patient Plan: Discharge Condition: STABLE Additional Instructions: Return immediately to the ER for any new symptoms, especially fever greater than 100.4, muscle aches, joint aches, chills, headaches, sweats. ROMIE TSANG, thank you for letting us take care of you today. Your provider was Dr. Christopher Ridley and you were treated for hand problem ( rash). The emergency medical care you received today was directed at your acute symptoms. If you were prescribed any medication, please fill it and take as directed. It may take several days for your symptoms to resolve. Return to the Emergency Department if your symptoms worsen, do not improve, or if you have any other problems. Please contact your doctor or call one of the physicians/clinics you have been referred to that are listed on the Patient Visit Information form that is included in your discharge packet. Bring any paperwork you were given at discharge with you along with any medications you are taking to your follow up visit. Our treatment cannot replace ongoing medical care by a primary care provider outside of the emergency department. Thank you for allowing the [facility] team to be part of your care today. If you had an X-Ray or CT scan: A Radiologist will review the ED reading if any change in treatment is needed we will contact you. If you had a blood, urine, or wound culture: It will take several days for the results, if any change in treatment is needed we will contact you. If you had an STI test: It will take 48 hours for the results. Please call after 1 week if you have not heard back. Referrals: Paulina Ahumada MD [Primary Care Provider] - Follow up with primary Karan Moy MD [Staff Provider] - Follow up with primary Forms: [employer] (Qatari), WORK NOTE
[2018-01-30 09:32] VITALS: BP 132/88; PULSE 78; TEMP 98.6; O2SAT 99
== END 2018-01-30 09:30 | disposition home or self-care (01) ==
LOC: ED 06:36
DX: R22.33 Localized swelling, mass and lump, upper limb, bilateral (principal); I25.10 Atherosclerotic heart disease of native coronary artery without angina pectoris; I50.9 Heart failure, unspecified; I10 Essential (primary) hypertension; Z87.891 Personal history of nicotine dependence; Z85.46 Personal history of malignant neoplasm of prostate; J44.9 Chronic obstructive pulmonary disease, unspecified

== ENCOUNTER 2018-06-25 08:15 | Outpatient (CLI) | payer BC | END 2018-06-25 08:16 | disposition home or self-care (01) | LOC: RAD 08:15 ==

== ENCOUNTER 2018-06-30 12:39 | Outpatient (CLI) | payer BC | END 2018-06-30 12:40 | disposition home or self-care (01) | LOC: RAD 12:40 | DX: R91.1 Solitary pulmonary nodule (principal) ==